=== PATIENT | male | born 1960 | race Caucasian/White ===

== ENCOUNTER 2016-12-02 11:20 | Emergency (ER) | payer OTHER ==
[2016-12-02] MEDS ORDERED: Sodium Chloride 0.9% 10 ML Syringe FLUSH PRN (11:54)
--- NOTE | 2016-12-02 11:54 | CR ---
Chest 1V Frontal INDICATION: chest pain COMPARISON: 08/29/2009 FINDINGS: Single view of the chest obtained shows normal heart size. No infiltrate or pleural effu darrel. No signs of pulmonary edema. IMPRESSION: Negative single view of the chest.
[2016-12-02] MEDS ORDERED: Clopidogrel 75 MG Tab PO ONE (11:55)
[2016-12-02] MEDS ORDERED: Heparin Sodium 5,000 Units/ML Vial IVPUSH ONE (11:55)
[2016-12-02] MEDS ORDERED: Metoprolol Succinate 25 MG Tab.ER PO ONE (11:56)
[2016-12-02] MEDS ORDERED: Heparin Sodium/D5W 25,000 UNITS/500 ML BAG IV SCH ×2 (12:00→12:30)
--- NOTE | 2016-12-02 12:07 | EDM.PDOC ---
ED HPI GENERAL MEDICAL PROBLEM - General Chief Complaint: Chest Pain Stated Complaint: FROM WALK IN Time Seen by Provider: 12/02/16 11:45 Source of Information: Reports: Patient History Limitations: Reports: No Limitations - History of Present Illness INITIAL COMMENTS - FREE TEXT/NARRATIVE: Azael presents to the ER today from [facility] with complaints of chest pain for 5 days that continues to worsen. He denies SOB, fever, chills. He states he has had nausea Aspirin 324 mg PO, EKG, CBC, BMP, Trop, all completed at [facility] this am at 1030. Trop 21.995 WBC 9.8 HGB 14.1 PLT 253 Creat 1.34 BUN 17 Na 13.7 K 3.9 CK 234 Gluc [address] depression in the inferior and lateral leads. This is a new finding for patient. Onset Date: 11/27/16 Duration: Day(s):, Intermittent, Waxing/Waning, Other (With some shortness of breath on activity. ) Location: Reports: Chest, Radiates to, Other Quality: Reports: Ache, Dull Improves with: Reports: None Right Neck Pain Score (Numeric/FACES): 2 - Related Data Allergies Allergy/AdvReac Type Severity Reaction Status Date / Time aluminum Allergy Rash Verified 12/02/16 11:52 Home Meds: Home Meds Aspirin [Adult Low Dose Aspirin EC] 81 mg PO DAILY 08/09/13 [History] Levothyroxine Sodium [Synthroid] 125 mcg PO DAILY 08/09/13 [History] Metoprolol Succinate [Toprol XL] 25 mg PO DAILY 08/09/13 [History] Omeprazole 20 mg PO DAILY 08/11/13 [History] Social & Family History - Tobacco Use Second Hand Smoke Exposure: No - Alcohol Use Days Per Week of Alcohol Use: 1 Number of Drinks Per Day: 1 Total Drinks Per Week: 1 - Recreational Drug Use Recreational Drug Use: No ED ROS GENERAL - Review of Systems Review Of Systems: See Below Constitutional: Denies: Fever, Chills, Malaise, Weakness, Fatigue, Night Sweats , Diaphoresis HEENT: Reports: No Symptoms Respiratory: Reports: Shortness of Breath, Other (SOB with activity at times the past 5 days. ). Denies: Cough, Sputum Cardiovascular: Reports: Chest Pain, Dyspnea on Exertion. Denies: Blood Pressure Problem, Claudication, Edema, Lightheadedness, Orthopnea, Palpitations , PND, Syncope Endocrine: Denies: No Symptoms GI/Abdominal: Reports: Nausea. Denies: Abdominal Pain, Constipation, Diarrhea, Vomiting : Denies: No Symptoms Skin: Reports: Other (Noted that patient had a tick bite between left great and 2nd toe on October 19, 2016. He reports the area became red, warm and went away after several days. ). Denies: Cyanosis, Mottled, Bruising, Rash, Erythema, Wound Neurological: Reports: No Symptoms Psychiatric: Reports: No Symptoms Hematologic/Lymphatic: Reports: No Symptoms Immunologic: Reports: No Symptoms ED EXAM, GENERAL - Physical Exam Exam: See Below Free Text/Narrative:: Azael is an alert, oriented, pleasant and active 56 year old male presenting with complaints of right sided chest pain, some dyspnea with exertion for 5 days. Past care and angiogram per Dr. Jj of [facility], 2010. Exam Limited By: No Limitations General Appearance: Alert, WD/WN, No Apparent Distress Eye Exam: Bilateral Eye: EOMI, PERRL Ears: Normal External Exam, Normal Canal, Hearing Grossly Normal, Normal TMs Ear Exam: Bilateral Ear: Auricle Normal, Canal Normal, TM normal Nose: Normal Inspection, Normal Mucosa, No Blood Throat/Mouth: Normal Inspection, Normal Lips, Normal Teeth, Normal Gums, Normal Oropharynx, Normal Voice, No Airway Compromise Head: Atraumatic, Normocephalic Neck: Normal Inspection, Supple, Non-Tender, Full Range of Motion Respiratory/Chest: No Respiratory Distress, Lungs Clear, Normal Breath Sounds, No Accessory Muscle Use, Chest Non-Tender Cardiovascular: Normal Peripheral Pulses, Regular Rate, Rhythm, No Edema, No Murmur, No Rub Peripheral Pulses: 2+: Radial (L), Radial (R), Dorsalis Pedis (L), Dorsalis Pedis (R) GI/Abdominal: Normal Bowel Sounds, Soft, Non-Tender, No Organomegaly, No Distention, No Abnormal Bruit Back Exam: Normal Inspection, Full Range of Motion. No: CVA Tenderness (R), CVA Tenderness (L) Extremities: Normal Inspection, Normal Range of Motion, Non-Tender, No Pedal Edema, Normal Capillary Refill Neurological: Alert, Oriented, CN II-XII Intact, Normal Cognition, No Motor/ Sensory Deficits Psychiatric: Normal Affect, Normal Mood Skin Exam: Warm, Dry, Intact, Normal Color, No Rash Lymphatic: No Adenopathy EKG INTERPRETATION EKG Date: 12/02/16 EKG Interpretation Comments: EKG completed at [facility] has ST depression of inferior and lateral leads. Course - Vital Signs Last Recorded V/S: Last Vital Signs Temp 36.6 C 12/02/16 11:45 Pulse 79 12/02/16 12:19 Resp 15 12/02/16 11:45 BP 146/102 H 12/02/16 12:19 Pulse Ox 97 12/02/16 11:45 - Orders/Labs/Meds Orders: Active Orders 24 hr Category Date Time Status Heparin Sodium/D5W [Heparin 25,000 Units in D5W 500 ML] Med 12/02/16 12:30 Active 25,000 units in 500 ml IV TITRATE Sodium Chloride 0.9% [Saline Flush] Med 12/02/16 11:54 Active 10 ml FLUSH ASDIRECTED PRN Saline Lock Insert [OM.PC] Routine Oth 12/02/16 11:54 Ordered Medication Orders Heparin Sodium/Dextrose (Heparin 25,000 Units In D5w 500 Ml) 25,000 units in 500 mls @ 20 mls/hr IV TITRATE IVONNE; 1,000 UNITS/HR PRN Reason: Protocol Last Admin: 12/02/16 12:26 Dose: 1,000 units/hr, 20 mls/hr Sodium Chloride (Saline Flush) 10 ml FLUSH ASDIRECTED PRN PRN Reason: Keep Vein Open Last Admin: 12/02/16 12:19 Dose: 10 ml Meds: Medications Generic Name Dose Route Start Last Admin Trade Name Freq PRN Reason Stop Dose Admin Heparin Sodium/Dextrose 25,000 units in 500 mls @ 20 mls/hr 12/02/16 12:30 12:26 Heparin 25,000 Units In D5w 500 Ml IV 1,000 units/hr TITRATE IVONNE 20 mls/hr Protocol Administration 1,000 UNITS/HR Sodium Chloride 10 ml 12/02/16 11:54 12/02/16 12:19 Saline Flush FLUSH 10 ml ASDIRECTED PRN Administration Keep Vein Open Discontinued Medications Generic Name Dose Route Start Last Admin Trade Name Freq PRN Reason Stop Dose Admin Clopidogrel Bisulfate 300 mg 12/02/16 11:55 12/02/16 12:06 Plavix PO 12/02/16 11:56 300 mg ONETIME ONE Administration Heparin Sodium (Porcine) 4,000 units 12/02/16 11:55 12/02/16 12:06 Heparin Sodium IVPUSH 12/02/16 11:56 4,000 units .BOLUS ONE Administration Heparin Sodium/Dextrose 25,000 units in 500 mls @ 1,705.507 mls/hr 12/02/16 12 :00 Heparin 25,000 Units In D5w 500 Ml IV TITRATE IVONNE 1,000 UNITS/KG/HR Metoprolol Succinate 25 mg 12/02/16 11:56 12/02/16 12:19 Toprol Xl PO 12/02/16 11:57 25 mg ONETIME ONE Administration - Radiology Interpretation Free Text/Narrative:: Chest x-ray wet read, shows no acute findings. - Re-Assessments/Exams Free Text/Narrative Re-Assessment/Exam: 12/02/16 1145 Patient from clinic, reviewed lab work with Officer and patient. Free Text/Narrative Re-Assessment/Exam: 12/02/16 12:39 Patient and family questions answered. They are in agreement with transfer to [facility]. Departure - Departure Time of Disposition: 12:09 Disposition: DC/Tfer to Acute Hospital 02 Reason for Transfer *Q: Other (Elevated Trop 21.995, Non-stemi AL) Condition: Serious Clinical Impression: Non-STEMI (non-ST elevated myocardial infarction), Elevated troponin Referrals: Adis Coello PA-C [Primary Care Provider] - - My Orders Last 24 Hours: My Active Orders 12/02/16 11:54 Sodium Chloride 0.9% [Saline Flush] 10 ml FLUSH ASDIRECTED PRN Saline Lock Insert [OM.PC] Routine 12/02/16 12:30 Heparin Sodium/D5W [Heparin 25,000 Units in D5W 500 ML] 25,000 units in 500 ml IV TITRATE - Assessment/Plan Last 24 Hours: My Active Orders 12/02/16 11:54 Sodium Chloride 0.9% [Saline Flush] 10 ml FLUSH ASDIRECTED PRN Saline Lock Insert [OM.PC] Routine 12/02/16 12:30 Heparin Sodium/D5W [Heparin 25,000 Units in D5W 500 ML] 25,000 units in 500 ml IV TITRATE Assessment:: Non-stemi AL Elevated troponin Transfer to [facility] Accepted per Dr. Mckee. Plan: Transfer via [facility] to [facility]. Accepted per Dr. Mckee.
[2016-12-02 14:01] VITALS: BP 142/92
== END 2016-12-02 12:50 ==
LOC: JP.ED 11:20
DX: I21.4 Non-ST elevation (NSTEMI) myocardial infarction (principal); R74.8 Abnormal levels of other serum enzymes; Z79.82 Long term (current) use of aspirin; Z79.899 Other long term (current) drug therapy; Z91.048 Other nonmedicinal substance allergy status
CPT/HCPCS: 71010; 96374; 99285; A9270; J1644; J7050

== ENCOUNTER 2016-12-20 09:11 | Inpatient (IN) | payer OTHER ==
--- NOTE | 2016-12-20 09:51 | EDM.PDOC ---
ED HPI GENERAL MEDICAL PROBLEM - General Chief Complaint: General Stated Complaint: WEAKNESS,LOW BP, STENTS 12/02 Time Seen by Provider: 12/20/16 09:25 Source of Information: Reports: Patient History Limitations: Reports: No Limitations - History of Present Illness INITIAL COMMENTS - FREE TEXT/NARRATIVE: 56-year-old male who within the last month underwent coronary angiography and had 3 stents placed after a non-STEMI. Since that time he has increased activity and has been doing well but 2 evenings ago he developed a "food poisoning" with nausea, vomiting and diarrhea. After several episodes of emesis he started to vomit blood. This continued for several hours, the nausea improved and he has not had emesis for the last 12 hours but has developed dark stools, lightheadedness and dizziness with activity and weakness. He had a long history of GERD and was on Prilosec prior to his procedure but is no longer taking it because he was told it hurts his kidneys. He is not having any significant pain, shortness of breath at rest, peripheral edema or easy bruising. Onset: Sudden (Symptoms started rather suddenly a day and a half ago) - Related Data Allergies Allergy/AdvReac Type Severity Reaction Status Date / Time aluminum Allergy Rash Verified 12/02/16 11:52 Home Meds: Home Meds Aspirin [Adult Low Dose Aspirin EC] 81 mg PO DAILY 08/09/13 [History] Levothyroxine Sodium [Synthroid] 125 mcg PO DAILY 08/09/13 [History] Metoprolol Succinate [Toprol XL] 50 mg PO DAILY 08/09/13 [History] Clopidogrel [Plavix] 75 mg PO DAILY 12/20/16 [History] Lisinopril 10 mg PO DAILY 12/20/16 [History] Rosuvastatin Calcium [Rosuvastatin Calcium] 10 mg PO DAILY 12/20/16 [History] Past Medical History Cardiovascular History: Reports: Hypertension, [place], Stents Gastrointestinal History: Reports: GERD Endocrine/Metabolic History: Reports: Hypothyroidism Social & Family History - Tobacco Use Smoking Status *Q: Never Smoker Second Hand Smoke Exposure: No - Caffeine Use Caffeine Use: Reports: Coffee - Alcohol Use Days Per Week of Alcohol Use: 1 Number of Drinks Per Day: 1 Total Drinks Per Week: 1 - Recreational Drug Use Recreational Drug Use: No ED ROS GENERAL - Review of Systems Review Of Systems: See Below Constitutional: Reports: Malaise, Weakness HEENT: Reports: No Symptoms Respiratory: Reports: Shortness of Breath (Some mild shortness of breath with activity) Cardiovascular: Reports: Dyspnea on Exertion, Other (Lightheadedness when standing) GI/Abdominal: Reports: Black Stool, Nausea Skin: Reports: Pallor, Diaphoresis Neurological: Reports: Dizziness Psychiatric: Reports: No Symptoms ED EXAM, GENERAL - Physical Exam Exam: See Below Exam Limited By: No Limitations General Appearance: Alert, No Apparent Distress Eye Exam: Bilateral Eye: Normal Inspection (No jaundice, no significant pallor to the conjunctiva) Respiratory/Chest: No Respiratory Distress, Lungs Clear Cardiovascular: Regular Rate, Rhythm, Tachycardia (Just mild tachycardia, no murmur) GI/Abdominal: Normal Bowel Sounds, Soft Rectal (Males) Exam: Deferred (Rectal exam was deferred as his stools are obviously melanotic) Neurological: Alert, Oriented Psychiatric: Normal Affect, Normal Mood Skin Exam: Warm, Dry Course - Vital Signs Last Recorded V/S: Last Vital Signs Temp 99.0 F 12/20/16 14:30 Pulse 102 H 12/20/16 14:40 Resp 18 12/20/16 14:40 BP 60/26 L 12/20/16 14:40 Pulse Ox 100 12/20/16 14:40 - Orders/Labs/Meds Orders: Active Orders 24 hr Category Date Time Status Sodium Chloride 0.9% [Normal Saline] 1,000 ml Med 12/20/16 10:15 Active IV ASDIRECTED Resuscitation Status Routine Resus Stat 12/20/16 11:12 Ordered Medication Orders Sodium Chloride (Normal Saline) 1,000 mls @ 250 mls/hr IV ASDIRECTED IVONNE Last Admin: 12/20/16 10:26 Dose: 250 mls/hr Labs: Laboratory Tests 12/20/16 12/20/16 12/20/16 Range/Units 09:52 09:52 09:52 WBC 6.9 (4.5-11.0) K/uL RBC 3.56 L (4.30-5.90) M/uL Hgb 10.2 L (12.0-15.0) g/dL Hct 30.6 L (40.0-54.0) % MCV 86 (80-98) fL MCH 29 (27-31) pg MCHC 33 (32-36) % Plt Count 285 (150-400) K/uL Neut % (Auto) 70 H (36-66) % Lymph % (Auto) 24 (24-44) % [place] % (Auto) 5 (2-6) % Eos % (Auto) 1 L (2-4) % Baso % (Auto) 0 (0-1) % PT 10.8 (9.5-12.0) sec INR 1.01 (0.80-1.20) Sodium 140 (140-148) mmol/L Potassium 4.1 (3.6-5.2) mmol/L Chloride 106 (100-108) mmol/L Carbon Dioxide 29 (21-32) mmol/L Anion Gap 4.7 L (5.0-14.0) mmol/L BUN 43 H (7-18) mg/dL Creatinine 1.2 (0.8-1.3) mg/dL Est Cr Clr Drug Dosing 71.82 mL/min Estimated GFR (MDRD) > 60 (>60) Glucose 148 H (74-106) mg/dL Calcium 8.3 L (8.5-10.1) mg/dL Total Bilirubin 0.3 (0.2-1.0) mg/dL AST 13 L (15-37) U/L ALT 17 (12-78) U/L Alkaline Phosphatase 48 (46-116) U/L Total Protein 6.9 (6.4-8.2) g/dL Albumin 3.3 L (3.4-5.0) g/dL Globulin 3.6 H (2.3-3.5) g/dL Albumin/Globulin Ratio 0.9 L (1.2-2.2) Meds: Medications Generic Name Dose Route Start Last Admin Trade Name Freq PRN Reason Stop Dose Admin Sodium Chloride 1,000 mls @ 250 mls/hr 12/20/16 10:15 12/20/16 10:26 Normal Saline IV 250 mls/hr ASDIRECTED IVONNE Administration Discontinued Medications Generic Name Dose Route Start Last Admin Trade Name Freq PRN Reason Stop Dose Admin Epinephrine HCl Confirm 12/20/16 12:47 Adrenalin 1:1000 Administered 12/20/16 12:48 Dose 1 mg .ROUTE .STK-MED ONE Fentanyl Confirm 12/20/16 13:25 Sublimaze Administered 12/20/16 13:26 Dose 100 mcg .ROUTE .STK-MED ONE Midazolam HCl Confirm 12/20/16 13:25 Versed 1 Mg/Ml Administered 12/20/16 13:26 Dose 2 mg .ROUTE .STK-MED ONE Pantoprazole Sodium 40 mg 12/20/16 10:15 12/20/16 10:26 Protonix Iv IVPUSH 12/20/16 10:16 40 mg ONETIME ONE Administration Propofol Confirm 12/20/16 13:25 Diprivan 20 Ml Administered 12/20/16 13:26 Dose 200 mg .ROUTE .STK-MED ONE - Re-Assessments/Exams Free Text/Narrative Re-Assessment/Exam: 12/20/16 09:51 CBC, CMP and INR were obtained. 12/20/16 10:49 CBC revealed a hemoglobin of 10.2, compared to 13.7 just a few weeks ago. BUN is 43. An IV was started and the patient was given 40 mg of IV Protonix, and 250 mL an hour of normal saline. Dr. Lainez of the hospitalist service was asked to see the patient to consider admission for serial hemoglobins and likely EGD consultation. Departure - Departure Time of Disposition: 14:36 Disposition: Admitted As Inpatient 67 Condition: Fair Clinical Impression: Upper GI bleed, Anemia, blood loss - Discharge Information - My Orders Last 24 Hours: My Active Orders 12/20/16 10:15 Sodium Chloride 0.9% [Normal Saline] 1,000 ml IV ASDIRECTED - Assessment/Plan Last 24 Hours: My Active Orders 12/20/16 10:15 Sodium Chloride 0.9% [Normal Saline] 1,000 ml IV ASDIRECTED
[2016-12-20] MEDS ORDERED: Sodium Chloride 0.9% 1,000 ML IV SCH (10:15)
[2016-12-20] MEDS ORDERED: Pantoprazole 40 MG Vial IVPUSH ONE ×2 (10:15→21:00)
--- NOTE | 2016-12-20 11:23 | PCM.HP ---
H&P History of Present Illness - General Date of Service: 12/20/16 Admit Problem/Dx: Admission Diagnosis/Problem Admission Diagnosis/Problem Gastrointestinal hemorrhage Source of Information: Patient, Family, Provider History Limitations: Reports: No Limitations - History of Present Illness Initial Comments - Free Text/Narative: Jose presents to the emergency room today with dizziness and weakness. He reports onset of difficulties on Friday, 2 days ago. After supper he became nauseated and vomited twice. He had a very uneasy feeling in his abdomen and then his third emesis was mostly bright red blood. He did have a couple of episodes of diarrhea after this which did not contain blood or melena. He has not had further episodes of hematemesis but has had some mild nausea. The day after the hematemesis he had several loose black tarry stools. Yesterday he felt weak and dizzy but seem to improve some with sleep. He had additional episodes of melena overnight and one this morning. He is very weak and able to walk only short distances before he becomes very lightheaded. He has not had a syncopal episode but has been very close. He does not report any abdominal pain at this time. He does have some heartburn symptoms. He has not had any fevers. He had breakfast at 8:30 this morning. Workup in the emergency room revealed acute blood loss anemia with a 4 g hemoglobin drop in the past 3 weeks. He is mildly tachycardic and there is concern for a significant upper GI bleed. He will be admitted for further management. - Related Data Allergies/Adverse Reactions: Allergies Allergy/AdvReac Type Severity Reaction Status Date / Time aluminum Allergy Rash Verified 12/02/16 11:52 Home Medications: Home Meds Aspirin [Adult Low Dose Aspirin EC] 81 mg PO DAILY 08/09/13 [History] Levothyroxine Sodium [Synthroid] 125 mcg PO DAILY 08/09/13 [History] Metoprolol Succinate [Toprol XL] 50 mg PO DAILY 08/09/13 [History] Clopidogrel [Plavix] 75 mg PO DAILY 12/20/16 [History] Lisinopril 10 mg PO DAILY 12/20/16 [History] Rosuvastatin Calcium [Rosuvastatin Calcium] 10 mg PO DAILY 12/20/16 [History] Past Medical History Cardiovascular History: Reports: Hypertension, [place], Stents Gastrointestinal History: Reports: GERD Endocrine/Metabolic History: Reports: Hypothyroidism Social & Family History - Family History GI: Denies: PUD - Tobacco Use Smoking Status *Q: Never Smoker Second Hand Smoke Exposure: No - Caffeine Use Caffeine Use: Reports: Coffee - Alcohol Use Days Per Week of Alcohol Use: 1 Number of Drinks Per Day: 1 Total Drinks Per Week: 1 - Recreational Drug Use Recreational Drug Use: No H&P Review of Systems - Review of Systems: Review Of Systems: See Below Free Text/Narrative: A complete 12 point review of systems was obtained. Pertinent positives and negatives are noted in the history of present illness. All other systems were reviewed and were negative except as noted. Exam - Exam Exam: See Below - Vital Signs Vital Signs: Last Vital Signs Temp 35.5 C 12/20/16 09:22 Pulse 104 H 12/20/16 09:22 Resp 18 12/20/16 09:22 BP 119/85 12/20/16 09:22 Pulse Ox 97 12/20/16 09:22 Weight: 81.7 kg - Exam Quality Assessment: No: Supplemental Oxygen General: Alert, Oriented, Cooperative. No: Mild Distress HEENT: Conjunctiva Clear. No: Mucosa Moist & [place] (dry), Scleral Icterus Neck: Supple, Trachea Midline Lungs: Clear to Auscultation, Normal Respiratory Effort Cardiovascular: Regular Rate, Regular Rhythm. No: Systolic Murmur GI/Abdominal Exam: Normal Bowel Sounds, Soft, Non-Tender, No Distention, No Mass Back Exam: Normal Inspection, Full Range of Motion Extremities: Normal Inspection, Normal Range of Motion, No Pedal Edema. No: Increased Warmth Peripheral Pulses: 2+: Dorsalis Pedis (L), Dorsalis Pedis (R) Skin: Warm, Dry Neuro Extensive - Mental Status: Alert, Oriented x3, Nl Response to Commands Neuro Extensive - Motor, Sensory, Reflexes: CN II-XII Intact. No: Dysarthria, Abnormal Motor, Tremor Psychiatric: Alert, Normal Affect - Patient Data Lab Results Last 24 hrs: Laboratory Results - last 24 hr 12/20/16 12/20/16 12/20/16 Range/Units 09:52 09:52 09:52 WBC 6.9 (4.5-11.0) K/uL RBC 3.56 L (4.30-5.90) M/uL Hgb 10.2 L (12.0-15.0) g/dL Hct 30.6 L (40.0-54.0) % MCV 86 (80-98) fL MCH 29 (27-31) pg MCHC 33 (32-36) % Plt Count 285 (150-400) K/uL Neut % (Auto) 70 H (36-66) % Lymph % (Auto) 24 (24-44) % [place] % (Auto) 5 (2-6) % Eos % (Auto) 1 L (2-4) % Baso % (Auto) 0 (0-1) % PT 10.8 (9.5-12.0) sec INR 1.01 (0.80-1.20) Sodium 140 (140-148) mmol/L Potassium 4.1 (3.6-5.2) mmol/L Chloride 106 (100-108) mmol/L Carbon Dioxide 29 (21-32) mmol/L Anion Gap 4.7 L (5.0-14.0) mmol/L BUN 43 H (7-18) mg/dL Creatinine 1.2 (0.8-1.3) mg/dL Est Cr Clr Drug Dosing 71.82 mL/min Estimated GFR (MDRD) > 60 (>60) Glucose 148 H (74-106) mg/dL Calcium 8.3 L (8.5-10.1) mg/dL Total Bilirubin 0.3 (0.2-1.0) mg/dL AST 13 L (15-37) U/L ALT 17 (12-78) U/L Alkaline Phosphatase 48 (46-116) U/L Total Protein 6.9 (6.4-8.2) g/dL Albumin 3.3 L (3.4-5.0) g/dL Globulin 3.6 H (2.3-3.5) g/dL Albumin/Globulin Ratio 0.9 L (1.2-2.2) Result Diagrams: 12/20/16 09:52 12/20/16 09:52 *Q Meaningful Use (ADM) - VTE *Q VTE Criteria *Q: VTE Pharmacological Contraindications *Q: Active Hemorrhage - VTE Risk Assess *Q Each Risk Factor Represents 1 Point: Age 41 - 59 years, Acute Myocardial Infarction, Less than 1 Month Total Score 1 Point Risk Factors: 2 Each Risk Factor Represents 2 Points: None Total Score 2 Point Risk Factors: 0 Each Risk Factor Represents 3 Points: None Total Score 3 Point Risk Factors: 0 Each Risk Factor Represents 5 Points: None Total Score 5 Point Risk Factors: 0 Venous Thromboembolism Risk Factor Score *Q: 2 - Stroke *Q Stroke Criteria *Q: - AMI *Q AMI Criteria *Q: - Problem List (1) Upper GI bleed SNOMED Code(s): 06646541 ICD Code: K92.2 - GASTROINTESTINAL HEMORRHAGE, UNSPECIFIED Status: Acute Current Visit: Yes (2) Anemia, blood loss SNOMED Code(s): 631330108 ICD Code: D50.0 - IRON DEFICIENCY ANEMIA SECONDARY TO BLOOD LOSS (CHRONIC) Status: Acute Current Visit: Yes (3) CAD (coronary artery disease) SNOMED Code(s): 79200053 ICD Code: I25.10 - ATHSCL HEART DISEASE OF [place] CORONARY ARTERY W/O ANG PCTRS Status: Chronic Current Visit: Yes Qualifiers: Coronary Disease-Associated Artery/Lesion type: [place] artery [place] vs. transplanted heart: [place] heart Associated angina: without angina Qualified Code(s): I25.10 - Atherosclerotic heart disease of [place] coronary artery without angina pectoris Problem List Initiated/Reviewed/Updated: Yes Orders Last 24hrs: Active Orders 24 hr Category Date Time Status Patient Status Manage Transfer [TRANSFER] Routine ADT 12/20/16 11:11 Ordered Sodium Chloride 0.9% [Normal Saline] 1,000 ml Med 12/20/16 10:15 Active IV ASDIRECTED Resuscitation Status Routine Resus Stat 12/20/16 11:12 Ordered Medication Orders Sodium Chloride (Normal Saline) 1,000 mls @ 250 mls/hr IV ASDIRECTED IVONNE Last Admin: 12/20/16 10:26 Dose: 250 mls/hr Assessment/Plan Comment:: Assessment and plan - Acute upper gastrointestinal hemorrhage with acute blood loss anemia - suspect bleeding ulcer versus possibly mucosal disruption with arterial hemorrhage following vomiting. He was recently started on aspirin and clopidogrel for coronary artery disease as discussed below. He does not appear to be actively bleeding at this time but does have evidence for volume depletion including tachycardia and presyncope. Blood pressure is stable at this point. -Maintain 2 IV sites -IV PPI -IV fluids -Type and cross 4 units of blood -EGD with Dr. Stone this afternoon -Consider sucralfate -Serial hemoglobin levels Coronary artery disease with recent non-ST elevation myocardial infarction - He had 3 stents placed 3 weeks ago and is on dual antiplatelet therapy. He has had a good functional status prior to onset of symptoms and has not had recent chest pain. Because of the recent stenting he must remain on dual antiplatelet therapy. -Continue medical management other than antihypertensives which will be held briefly Maintenance issues - - DVT prophylaxis - mechanical with active hemorrhage - GI prophylaxis - PPI - Nutrition - nothing by mouth for now - Samson catheter - not indicated CODE STATUS - full code Admission justification - This patient will be admitted for inpatient services and is medically appropriate meeting medical necessity for inpatient admission as outlined in my documentation. I reasonably expect the patient will require inpatient services that span a period time over 2 midnights. I reasonably expect this patient to be discharged or transferred within 96 hours [facility]. Disposition - anticipate discharge home after the hospital stay Primary care physician - Adis Lianez M.D.
[2016-12-20] MEDS ORDERED: EPINEPHrine 1 MG/ML SDV ONE (12:47)
[2016-12-20] MEDS ORDERED: Midazolam 1 MG/ML 2 ML SDV ONE (13:25)
[2016-12-20] MEDS ORDERED: fentaNYL 100 MCG/2 ML SDV ONE (13:25)
[2016-12-20] MEDS ORDERED: Propofol 200 MG/20 ML SDV ONE (13:25)
[2016-12-20] MEDS ORDERED: Naloxone 0.4 MG/ML SDV ONE (14:47)
[2016-12-20] MEDS: Sucralfate Suspension 1 GM/10 ML Cup PO SCH ×3 (16:22→20:04)
[2016-12-20] MEDS: Sodium Chloride 0.9% 1,000 ML IV SCH (19:50)
[2016-12-21] MEDS: Sodium Chloride 0.9% 1,000 ML IV SCH ×2 (03:53→11:52)
[2016-12-21] MEDS: Sucralfate Suspension 1 GM/10 ML Cup PO SCH ×4 (06:24→19:38)
--- NOTE | 2016-12-21 09:27 | PCM.PN ---
- General Info Date of Service: 12/21/16 Functional Status: Reports: Pain Controlled, Ambulating - Review of Systems General: Reports: Weakness Gastrointestinal: Denies: Abdominal Pain Neurological: Reports: Dizziness Systems Review Comment:: No acute events overnight. No recurrence of hematemesis or melena. Hemoglobin has slowly drifted down. He remains hypotensive and symptomatic with dizziness despite aggressive volume resuscitation. No significant abdominal pain. EGD yesterday did reveal an ulcer at the GE junction. There was some concern for varices but his abdominal ultrasound did not show cirrhosis. - Patient Data Vitals - Most Recent: Last Vital Signs Temp 37.3 C 12/21/16 08:00 Pulse 75 12/21/16 06:00 Resp 13 12/21/16 08:00 BP 97/59 L 12/21/16 08:00 Pulse Ox 99 12/21/16 08:00 Weight - Most Recent: 81.7 kg I&O - Last 24 Hours: Intake & Output 12/20/16 12/21/16 12/21/16 22:59 06:59 14:59 Intake Total 1570 Output Total 400 825 Balance -400 745 Lab Results Last 24 Hours: Laboratory Results - last 24 hr 12/20/16 12/20/16 12/21/16 Range/Units 19:17 19:19 05:00 WBC 5.6 (4.5-11.0) K/uL RBC 2.81 L (4.30-5.90) M/uL Hgb 8.8 L 8.2 L (12.0-15.0) g/dL Hct 24.6 L (40.0-54.0) % MCV 88 (80-98) fL MCH 29 (27-31) pg MCHC 33 (32-36) % Plt Count 211 (150-400) K/uL Blood Type A POSITIVE Gel Antibody Screen Negative Crossmatch See Detail Med Orders - Current: Current Medications Sodium Chloride (Normal Saline) 1,000 mls @ 250 mls/hr IV ASDIRECTED IVONNE Last Admin: 12/20/16 10:26 Dose: 250 mls/hr Sodium Chloride (Normal Saline) 1,000 mls @ 125 mls/hr IV ASDIRECTED IVONNE Last Admin: 12/21/16 03:53 Dose: 125 mls/hr Sucralfate (Carafate) 1 gm PO QIDACANDBED IVONNE Last Admin: 12/21/16 06:24 Dose: 1 gm Discontinued Medications Epinephrine HCl (Adrenalin 1:1000) Confirm Administered Dose 1 mg .ROUTE .STK- MED ONE Stop: 12/20/16 12:48 Fentanyl (Sublimaze) Confirm Administered Dose 100 mcg .ROUTE .STK-MED ONE Stop: 12/20/16 13:26 Midazolam HCl (Versed 1 Mg/Ml) Confirm Administered Dose 2 mg .ROUTE .STK-MED ONE Stop: 12/20/16 13:26 Naloxone HCl (Narcan) Confirm Administered Dose 0.4 mg .ROUTE .STK-MED ONE Stop: 12/20/16 14:48 Pantoprazole Sodium (Protonix Iv) 40 mg IVPUSH ONETIME ONE Stop: 12/20/16 10:16 Last Admin: 12/20/16 10:26 Dose: 40 mg Pantoprazole Sodium (Protonix Iv) 40 mg IVPUSH ONETIME ONE Stop: 12/20/16 21:01 Last Admin: 12/20/16 20:04 Dose: 40 mg Propofol (Diprivan 20 Ml) Confirm Administered Dose 200 mg .ROUTE .STK-MED ONE Stop: 12/20/16 13:26 - Exam Quality Assessment: No: Supplemental Oxygen General: Alert, Oriented, Cooperative, No Acute Distress Neck: Supple Lungs: Normal Respiratory Effort Cardiovascular: Regular Rate, Regular Rhythm GI/Abdominal Exam: Soft, No Distention Extremities: No Pedal Edema. No: Increased Warmth Skin: Warm, Dry Psy/Mental Status: Alert, Normal Affect - Problem List & Annotations (1) Upper GI bleed SNOMED Code(s): 62096489 Code(s): K92.2 - GASTROINTESTINAL HEMORRHAGE, UNSPECIFIED Status: Acute Current Visit: Yes (2) Anemia, blood loss SNOMED Code(s): 067779130 Code(s): D50.0 - IRON DEFICIENCY ANEMIA SECONDARY TO BLOOD LOSS (CHRONIC) Status: Acute Current Visit: Yes (3) CAD (coronary artery disease) SNOMED Code(s): 62038625 Code(s): I25.10 - ATHSCL HEART DISEASE OF [place] CORONARY ARTERY W/O ANG PCTRS Status: Chronic Current Visit: Yes Qualifiers: Coronary Disease-Associated Artery/Lesion type: [place] artery [place] vs. transplanted heart: [place] heart Associated angina: without angina Qualified Code(s): I25.10 - Atherosclerotic heart disease of [place] coronary artery without angina pectoris - Problem List Review Problem List Initiated/Reviewed/Updated: Yes - My Orders Last 24 Hours: My Active Orders 12/20/16 15:17 Abdomen Ltd [US] Routine 12/20/16 16:00 Sucralfate [Carafate] 1 gm PO QIDACANDBED 12/20/16 19:19 PATIENT RETYPE [BBK] Routine RED BLOOD CELLS LP [BBK] Routine TYPE AND SCREEN [BBK] Routine 12/20/16 19:28 Vital Signs [RC] PER UNIT ROUTINE 12/20/16 19:30 Sodium Chloride 0.9% [Normal Saline] 1,000 ml IV ASDIRECTED 12/21/16 09:24 Transfuse Red Blood Cells [COMM] Routine 12/21/16 09:30 Aspirin [Halfprin] 81 mg PO DAILY Clopidogrel [Plavix] 75 mg PO DAILY Levothyroxine Sodium [Synthroid] 125 mcg PO DAILY Pantoprazole [ProTONIX] 40 mg PO BIDAC Rosuvastatin [Crestor] 10 mg PO DAILY 12/21/16 17:00 HGB [HEMOGLOBIN] [HEME] Timed 12/21/16 Breakfast Full Liquid Diet [DIET] 12/22/16 05:00 BASIC METABOLIC PANEL,BMP [CHEM] Timed CBC W/O DIFF,HEMOGRAM [HEME] Timed (1) - Plan Plan:: Assessment and plan - Acute upper gastrointestinal hemorrhage with acute blood loss anemia - ulceration found at the GE junction with endoscopy yesterday. His was not actively bleeding. Some concern for varices but no cirrhosis noted. Variceal appearance probably related to decreased ejection fraction and enteric congestion. Hemoglobin slowly drifting down but probably a component of dilution. -Maintain 2 IV sites -Twice a day PPI -Continue fluids -Transfuse 1 unit of blood today with persistent hypotension and symptoms despite volume resuscitation -4 times daily sucralfate -Serial hemoglobin levels Coronary artery disease with recent non-ST elevation myocardial infarction - He had 3 stents placed 3 weeks ago and is on dual antiplatelet therapy. He has had a good functional status prior to onset of symptoms and has not had recent chest pain. Because of the recent stenting he must remain on dual antiplatelet therapy.Blood pressures are on the low side and MACKENZIE inhibitor and beta mady will remain on hold. -Continue medical management other than antihypertensives which will be held briefly Maintenance issues - - DVT prophylaxis - mechanical with recent hemorrhage - GI prophylaxis - PPI - Nutrition - full liquids Disposition - anticipate discharge home after the hospital stay. He should be stable for transfer out of the intensive care unit later in the day. Chirag Lainez M.D.
[2016-12-21] MEDS ORDERED: Non-Formulary Medication 1 Each (Levothyroxine Sodium [Synthroid] 125 MCG) PO SCH (09:30)
[2016-12-21] MEDS: Aspirin 81 MG Tab.EC PO SCH (10:31)
[2016-12-21] MEDS: Rosuvastatin 10 MG Tab PO SCH (10:31)
[2016-12-21] MEDS: Clopidogrel 75 MG Tab PO SCH (10:32)
[2016-12-21] MEDS: Pantoprazole 40 MG Tab.CR PO SCH ×2 (10:32→16:07)
[2016-12-22] MEDS: Pantoprazole 40 MG Tab.CR PO SCH (07:47)
[2016-12-22] MEDS: Sucralfate Suspension 1 GM/10 ML Cup PO SCH ×2 (07:48→11:26)
[2016-12-22] MEDS: Rosuvastatin 10 MG Tab PO SCH (08:38)
[2016-12-22] MEDS: Clopidogrel 75 MG Tab PO SCH (08:39)
[2016-12-22] MEDS: Aspirin 81 MG Tab.EC PO SCH (08:39)
[2016-12-22 09:39] VITALS: BP 98/79
--- NOTE | 2016-12-22 12:14 | PCM.DCSUM1 ---
Discharge Summary - Hospital Course Brief History: 56-year-old male with recent non-ST elevation myocardial infarction who presented with hematemesis and melena. He was admitted for management of an acute upper gastrointestinal hemorrhage with blood loss anemia. - Discharge Data Discharge Date: 12/22/16 Discharge Disposition: Home, Self-Care 01 Condition: Good - Discharge Diagnosis/Problem(s) (1) Upper GI bleed SNOMED Code(s): 67062585 ICD Code: K92.2 - GASTROINTESTINAL HEMORRHAGE, UNSPECIFIED Status: Acute (2) Anemia, blood loss SNOMED Code(s): 982161590 ICD Code: D50.0 - IRON DEFICIENCY ANEMIA SECONDARY TO BLOOD LOSS (CHRONIC) Status: Acute (3) CAD (coronary artery disease) SNOMED Code(s): 21496859 ICD Code: I25.10 - ATHSCL HEART DISEASE OF [place] CORONARY ARTERY W/O ANG PCTRS Status: Chronic Qualifiers: Coronary Disease-Associated Artery/Lesion type: [place] artery [place] vs. transplanted heart: [place] heart Associated angina: without angina Qualified Code(s): I25.10 - Atherosclerotic heart disease of [place] coronary artery without angina pectoris - Patient Summary/Data Hospital Course: Jose presented to the emergency room with hematemesis, melena and presyncope. Workup in the emergency room suggested acute blood loss anemia with a 4 g hemoglobin drop and concern for upper gastrointestinal hemorrhage. He received aggressive IV fluids and IV pantoprazole and was admitted to the intensive care unit for further management. The afternoon after admission he was taken to the operating room for upper endoscopy with Dr. Stone. During the endoscopy and ulcer near the GE junction was identified with no evidence for bleeding. There was some concern for varices noted on the EGD but no active bleeding. No significant gastritis or esophagitis was noted. He has been stable following endoscopy. Serial hemoglobin levels did show a decline to near but above 8. He had some persistent dizziness and hypotension despite the aggressive volume resuscitation and did receive one unit of packed red blood cells via transfusion. Since the transfusion he has felt better with resolution of his dizziness. He has remained borderline hypotensive and his antihypertensive medications have been on hold. His hemoglobin responded nicely to the blood transfusion and has been stable since that time. He has not had additional episodes of melena or hematemesis. He has not had any abdominal pain. He has been transitioned to oral pantoprazole with no difficulties. Kidney function has remained stable. No reports of chest pain or concerns for coronary difficulties with recent non-ST elevation myocardial infarction. He has tolerated his full liquid diet. I believe he is safe for outpatient management at this time. His antihypertensives will remain on hold and blood pressure checks will be through cardiac rehabilitation this week. Once his blood pressure starts to improve I recommended he restart his metoprolol and then his lisinopril once blood pressures had stabilized. He will be following up with his primary care and would benefit from a repeat hemoglobin at that time. He will be on pantoprazole twice a day for a month and then once a day for 2 months. - Patient Instructions Diet: Regular Diet as Tolerated Diet, Other: Liquids and soft/bland foods for the next week Activity: As Tolerated Driving: May Drive Today Showering/Bathing: May Shower Notify Provider of: Fever, Increased Pain, Nausea and/or Vomiting Other/Special Instructions: 1. You were in the hospital for management of an acute upper gastrointestinal bleed caused by an ulcer in your stomach. The bleeding has stopped injure hemoglobin has stabilized. You did require a transfusion of one unit of packed red blood cells. I recommend that you take pantoprazole 40 mg twice daily for 1 month and then 1 time daily for 2 months. This is an acid blocking medication similar to Prilosec and will help to reduce your stomach acid and help the ulcer heal. This medication is preferred because it does not interact with clopidogrel (Plavix). 2. Please consume liquids as well as soft and bland foods such as mashed potatoes or cottage cheese for at least the next week. This will help reduce irritation to the ulcer and reduce the risk of having additional bleeding. 3. Do not take your blood pressure medications (metoprolol or lisinopril) tomorrow. You should restart your metoprolol when your systolic blood pressure rises to greater than 120. They can check your blood pressure at cardiac rehabilitation. If your blood pressure remains greater than 130 after the metoprolol is started you can restart your lisinopril. 4. Please seek medical attention if you have dizziness or feel like you're going to pass out, you have severe epigastric pain, vomiting of blood, have blood in your stool or black tarry stools. 5. Follow up with Adis REYEZ later this week to have your blood pressure rechecked and have your hemoglobin level repeated. 6. You may return to work next December 30 with no restrictions. - Discharge Plan Prescriptions/Med Rec: Pantoprazole [ProTONIX] 40 mg PO BIDAC #60 tab.cr Home Medications: Home Meds Aspirin [Adult Low Dose Aspirin EC] 81 mg PO DAILY 08/09/13 [History] Levothyroxine Sodium [Synthroid] 125 mcg PO DAILY 08/09/13 [History] Metoprolol Succinate [Toprol XL] 50 mg PO DAILY 08/09/13 [History] Clopidogrel [Plavix] 75 mg PO DAILY 12/20/16 [History] Lisinopril 10 mg PO DAILY 12/20/16 [History] Rosuvastatin Calcium 10 mg PO DAILY 12/20/16 [History] Pantoprazole [ProTONIX] 40 mg PO BIDAC #60 tab.cr 12/22/16 [Rx] Patient Handouts: Peptic Ulcer, Pantoprazole tablets Referrals: Adis Coello PA-C [Primary Care Provider] - (f/u this week - f/u hospital stay for bleeding gastric ulcer and blood loss anemia. Repeat hgb on the day of the visit) - Discharge Summary/Plan Comment DC Time >30 min.: No (25) - Patient Data Vitals - Most Recent: Last Vital Signs Temp 35.7 C 12/22/16 08:00 Pulse 88 12/22/16 08:00 Resp 18 12/22/16 08:00 BP 98/79 12/22/16 08:00 Pulse Ox 98 12/22/16 08:00 Weight - Most Recent: 81.7 kg I&O - Last 24 hours: Intake & Output 12/21/16 12/22/16 12/22/16 22:59 06:59 14:59 Intake Total 420 500 700 Output Total 500 800 Balance -80 -300 700 Lab Results - Last 24 hrs: Laboratory Results - last 24 hr 12/21/16 12/22/16 12/22/16 Range/Units 17:00 05:16 05:16 WBC 6.0 (4.5-11.0) K/uL RBC 3.34 L (4.30-5.90) M/uL Hgb 9.7 L 9.7 L (12.0-15.0) g/dL Hct 28.9 L (40.0-54.0) % MCV 87 (80-98) fL MCH 29 (27-31) pg MCHC 34 (32-36) % Plt Count 224 (150-400) K/uL Sodium 143 (140-148) mmol/L Potassium 4.2 (3.6-5.2) mmol/L Chloride 107 (100-108) mmol/L Carbon Dioxide 29 (21-32) mmol/L Anion Gap 6.6 (5.0-14.0) mmol/L BUN 15 D (7-18) mg/dL Creatinine 1.3 (0.8-1.3) mg/dL Est Cr Clr Drug Dosing 66.46 mL/min Estimated GFR (MDRD) 57 L (>60) Glucose 89 (74-106) mg/dL Calcium 8.4 L (8.5-10.1) mg/dL Med Orders - Current: Current Medications Aspirin (Halfprin) 81 mg PO DAILY [facility] Last Admin: 12/22/16 08:39 Dose: 81 mg Clopidogrel Bisulfate (Plavix) 75 mg PO DAILY [facility] Last Admin: 12/22/16 08:39 Dose: 75 mg Levothyroxine Sodium 75 mcg/ (Levothyroxine Sodium 50 mcg) 125 mcg PO ACBREAKFAST [facility] Last Admin: 12/22/16 07:48 Dose: 125 mcg Pantoprazole Sodium (Protonix) 40 mg PO BIDAC [facility] Last Admin: 12/22/16 07:47 Dose: 40 mg Rosuvastatin Calcium (Crestor) 10 mg PO DAILY [facility] Last Admin: 12/22/16 08:38 Dose: 10 mg Sucralfate (Carafate) 1 gm PO QIDACANDBED [facility] Last Admin: 12/22/16 11:26 Dose: 1 gm Discontinued Medications Epinephrine HCl (Adrenalin 1:1000) Confirm Administered Dose 1 mg .ROUTE .STK- MED ONE Stop: 12/20/16 12:48 Fentanyl (Sublimaze) Confirm Administered Dose 100 mcg .ROUTE .STK-MED ONE Stop: 12/20/16 13:26 Sodium Chloride (Normal Saline) 1,000 mls @ 250 mls/hr IV ASDIRECTED [facility] Last Admin: 12/20/16 10:26 Dose: 250 mls/hr Sodium Chloride (Normal Saline) 1,000 mls @ 125 mls/hr IV ASDIRECTED IVONNE Last Admin: 12/21/16 11:52 Dose: 125 mls/hr Midazolam HCl (Versed 1 Mg/Ml) Confirm Administered Dose 2 mg .ROUTE .STK-MED ONE Stop: 12/20/16 13:26 Naloxone HCl (Narcan) Confirm Administered Dose 0.4 mg .ROUTE .STK-MED ONE Stop: 12/20/16 14:48 Pantoprazole Sodium (Protonix Iv) 40 mg IVPUSH ONETIME ONE Stop: 12/20/16 10:16 Last Admin: 12/20/16 10:26 Dose: 40 mg Pantoprazole Sodium (Protonix Iv) 40 mg IVPUSH ONETIME ONE Stop: 12/20/16 21:01 Last Admin: 12/20/16 20:04 Dose: 40 mg Propofol (Diprivan 20 Ml) Confirm Administered Dose 200 mg .ROUTE .STK-MED ONE Stop: 12/20/16 13:26 *Q Meaningful Use (DIS) - VTE *Q VTE Criteria *Q: VTE Pharmacological Contraindications *Q: Active Hemorrhage - Stroke *Q Stroke Criteria *Q: - AMI *Q AMI Criteria *Q:
--- NOTE | 2016-12-24 10:26 | OR ---
DATE OF PROCEDURE: 12/20/2016 PREOPERATIVE DIAGNOSIS: Upper gastrointestinal hemorrhage. POSTOPERATIVE DIAGNOSES: Upper gastrointestinal hemorrhage, resolved; hiatal hernia; apparent esophageal varices. PROCEDURE: Esophagogastroduodenoscopy. ANESTHESIA: IV anesthesia with monitored anesthesia care. INDICATION: This 56-year-old white male vomited some blood and then had black tarry stools. He passed out at home. He came into the emergency room. A request was made for upper endoscopy. He did have a heart attack with stents placed about 3 weeks ago. He is on Plavix, which cannot be stopped. His hemoglobin went from about 14 to around 10. I counseled him for upper endoscopy with no plan for biopsy including risks and alternatives, and he gave his informed consent to proceed. DESCRIPTION OF PROCEDURE: The patient was placed in the left lateral decubitus position. IV anesthesia was administered by the Anesthesia Service. Time-out was held. The flexible video Olympus upper endoscope was passed through his mouth, down his esophagus, and into his stomach. The scope was easily passed through the pylorus into the duodenum , reaching its third portion. The scope was then slowly withdrawn, examining the mucosa throughout. At no point did we see any old or new blood. The scope was brought up through the unremarkable appearing duodenum. It was brought back through the pylorus. The antrum appeared unremarkable. The scope was retroflexed. The proximal stomach appeared unremarkable. The scope was straightened and we brought the scope up through a fairly small hiatal hernia. At this point, we saw a lesion in the distal esophagus which looked like it could be a nonbleeding varix. The scope was brought proximally. He did appear to have distal esophageal varices. The scope was then brought up through the remainder of the esophagus, which appeared unremarkable and it was removed. He tolerated the procedure well. Ronen Stone MD /[id number] [facility]
== END 2016-12-22 12:30 | disposition home or self-care (01) | DRG 378 ==
LOC: JP.ED 09:11 → JP.ICU 11:23 → UNDOADMIN 11:23 → JP.MS 12-21 15:07 → JP.ICU 12-21 15:50 → JP.MS 12-21 15:50
PROVIDERS: ADMIT Internal Medicine; ATTEND Internal Medicine
PROC: 0DJ08ZZ Inspection of Upper Intestinal Tract, Via Natural or Artificial Opening Endoscopic (ICD-10-PCS; principal; 2016-12-20)
PROC: 30233N1 Transfusion of Nonautologous Red Blood Cells into Peripheral Vein, Percutaneous Approach (ICD-10-PCS; 2016-12-21)
DX: K25.4 Chronic or unspecified gastric ulcer with hemorrhage (principal); D62 Acute posthemorrhagic anemia; I85.00 Esophageal varices without bleeding; I25.10 Atherosclerotic heart disease of native coronary artery without angina pectoris; I10 Essential (primary) hypertension; Z95.5 Presence of coronary angioplasty implant and graft; I25.2 Old myocardial infarction; E03.9 Hypothyroidism, unspecified; K21.9 Gastro-esophageal reflux disease without esophagitis; Z79.02 Long term (current) use of antithrombotics/antiplatelets; Z79.82 Long term (current) use of aspirin; Z79.899 Other long term (current) drug therapy; R42 Dizziness and giddiness; Z91.048 Other nonmedicinal substance allergy status
CPT/HCPCS: 36415; 36430; 76705; 80048; 80053; 85018; 85025; 85027; 85610; 86850; 86900; 86901; 86920; 86922; 96361; 96374; 99285-25; A9270-GY; C9113; J0171; J2250; J2310; J2704; J3010; J7040; P9016

== ENCOUNTER 2020-04-20 15:11 | Emergency (ER) | payer OTHER ==
[2020-04-20] MEDS ORDERED: Sodium Chloride 0.9% 10 ML Syringe FLUSH PRN (15:18)
[2020-04-20] MEDS ORDERED: Morphine 4 MG/ML Syringe IVPUSH PRN (15:19)
[2020-04-20] MEDS: Nitroglycerin 0.4 MG Tab.SL SL PRN ×2 (15:24→16:07)
--- NOTE | 2020-04-20 15:31 | EDM.PDOC ---
ED HPI GENERAL MEDICAL PROBLEM - General Chief Complaint: Chest Pain Stated Complaint: heart history pain shoulder across the back Time Seen by Provider: 04/20/20 15:18 Source of Information: Reports: Patient, Family, Old Records, RN Notes Reviewed History Limitations: Reports: No Limitations - History of Present Illness INITIAL COMMENTS - FREE TEXT/NARRATIVE: 59-year-old gentleman presents emergency department today complaint of chest pain nausea and shortness of breath, he states it started a couple hours ago has progressively gotten worse he did take 6 baby aspirin at home did not use his nitro he does have a known history of coronary artery disease recently underwent nuclear medicine perfusion study which showed mild ischemia follows with Dr. Lorenzo cardiology [facility] history of stenting stillaguamish vessel Chest Pain Score (Numeric/FACES): 8 - Related Data Allergies Allergy/AdvReac Type Severity Reaction Status Date / Time aluminum Allergy Rash Verified 04/06/20 09:28 lisinopril Allergy Cough Verified 04/20/20 15:23 Home Meds: Home Meds Aspirin [Adult Low Dose Aspirin EC] 81 mg PO DAILY 08/09/13 [History] Levothyroxine Sodium [Synthroid] 125 mcg PO DAILY 08/09/13 [History] Metoprolol Succinate [Toprol XL] 100 mg PO DAILY 08/09/13 [History] Clopidogrel [Plavix] 75 mg PO DAILY 12/20/16 [History] Lisinopril 10 mg PO DAILY 12/20/16 [History] Rosuvastatin Calcium 20 mg PO DAILY 12/20/16 [History] Losartan [Cozaar] 25 mg PO DAILY 04/05/20 [History] Nitroglycerin [Nitrostat] 0.4 mg SL ASDIRECTED 04/05/20 [History] Tamsulosin [Tamsulosin 24 Hr] 0.4 mg PO DAILY 04/05/20 [History] cycloSPORINE [Restasis] 1 each EYEBOTH ASDIRECTED 04/05/20 [History] prednisoLONE acetate [Pred Forte 1% Ophth Susp] 1 drop EYEBOTH DAILY 04/05/20 [History] Pantoprazole [ProTONIX] 40 mg PO DAILY 04/06/20 [History] Past Medical History Cardiovascular History: Reports: CAD (5), Hypertension, [place], Stents Gastrointestinal History: Reports: GERD Endocrine/Metabolic History: Reports: Hypothyroidism - Infectious Disease History Infectious Disease History: Reports: Chicken Pox Social & Family History - Family History Endocrine/Metabolic: Reports: None Dermatologic: Reports: None - Tobacco Use Tobacco Use Status *Q: Never Tobacco User - Caffeine Use Caffeine Use: Reports: Coffee - Recreational Drug Use Recreational Drug Use: No ED ROS GENERAL - Review of Systems Review Of Systems: See Below Constitutional: Reports: No Symptoms HEENT: Reports: No Symptoms Respiratory: Reports: Shortness of Breath Cardiovascular: Reports: Chest Pain, Dyspnea on Exertion GI/Abdominal: Reports: Nausea. Denies: Vomiting ED EXAM, GENERAL - Physical Exam Exam: See Below Exam Limited By: No Limitations General Appearance: Alert, Mild Distress Respiratory/Chest: No Respiratory Distress, Lungs Clear, Normal Breath Sounds, No Accessory Muscle Use, Chest Non-Tender Cardiovascular: Regular Rate, Rhythm, No Murmur GI/Abdominal: Soft, Non-Tender Course - Vital Signs Last Recorded V/S: Last Vital Signs Temp 96.8 F L 04/20/20 15:19 Pulse 93 04/20/20 16:16 Resp 14 04/20/20 16:16 BP 120/73 04/20/20 16:16 Pulse Ox 93 L 04/20/20 16:16 - Orders/Labs/Meds Orders: Active Orders 24 hr Category Date Time Status Cardiac Monitoring [RC] .As Directed Care 04/20/20 15:18 Active EKG Documentation Completion [RC] ASDIRECTED Care 04/20/20 15:19 Active EKG Documentation Completion [RC] ASDIRECTED Care 04/20/20 15:33 Active Peripheral IV Care [RC] . DIRECTED Care 04/20/20 15:19 Active Chest 1V Frontal [CR] Stat Exams 04/20/20 15:18 Taken Heparin Sodium/D5W [Heparin 25,000 Units in D5W 500 ML] Med 04/20/20 16:15 Ordered 25,000 units in 500 ml IV TITRATE Morphine Med 04/20/20 15:19 Active 4 mg IVPUSH Q10M PRN Nitroglycerin [Nitrostat] Med 04/20/20 15:19 Active 0.4 mg SL Q5M PRN Sodium Chloride 0.9% [Saline Flush] Med 04/20/20 15:18 Active 10 ml FLUSH ASDIRECTED PRN Peripheral IV Insertion Adult [OM.PC] Stat Oth 04/20/20 15:18 Ordered Saline Lock Insert [OM.PC] Stat Oth 04/20/20 15:18 Ordered EKG 12 Lead [EK] Stat Ther 04/20/20 15:18 Ordered EKG 12 Lead [EK] Stat Ther 04/20/20 15:33 Ordered Medication Orders Heparin Sodium/Dextrose (Heparin 25,000 Units In D5w 500 Ml) 25,000 units in 500 mls @ 43.2 mls/hr IV TITRATE IVONNE; Protocol Morphine Sulfate (Morphine) 4 mg IVPUSH Q10M PRN PRN Reason: Chest Pain Stop: 04/21/20 15:20 Nitroglycerin (Nitrostat) 0.4 mg SL Q5M PRN PRN Reason: Chest Pain Stop: 04/21/20 15:20 Last Admin: 04/20/20 16:07 Dose: 0.4 mg Documented by: Admin: 04/20/20 15:24 Dose: 0.4 mg Documented by: GREGORIA Sodium Chloride (Saline Flush) 10 ml FLUSH ASDIRECTED PRN PRN Reason: Keep Vein Open Last Admin: 04/20/20 15:24 Dose: 10 ml Documented by: [id number] Labs: Laboratory Tests 04/20/20 04/20/20 Range/Units 15:28 15:28 WBC 8.8 (4.5-11.0) K/uL RBC 5.58 (4.30-5.90) M/uL Hgb 15.4 H D (12.0-15.0) g/dL Hct 48.0 (40.0-54.0) % MCV 86 (80-98) fL MCH 28 (27-31) pg MCHC 32 (32-36) % Plt Count 288 (150-400) K/uL Neut % (Auto) 57 (36-66) % Lymph % (Auto) 34 (24-44) % [place] % (Auto) 6 (2-6) % Eos % (Auto) 2 (2-4) % Baso % (Auto) 1 (0-1) % Sodium 141 (140-148) mmol/L Potassium 3.7 (3.6-5.2) mmol/L Chloride 103 (100-108) mmol/L Carbon Dioxide 30 (21-32) mmol/L Anion Gap 8.5 (5.0-14.0) mmol/L BUN 18 (7-18) mg/dL Creatinine 1.4 H (0.8-1.3) mg/dL Est Cr Clr Drug Dosing 57.51 mL/min Estimated GFR (MDRD) 52 L (>60) Glucose 101 (74-106) mg/dL Calcium 9.1 (8.5-10.1) mg/dL Total Bilirubin 0.5 D (0.2-1.0) mg/dL AST 19 (15-37) U/L ALT 28 (12-78) U/L Alkaline Phosphatase 84 (46-116) U/L Troponin I 1.645 H* (0.000-0.056) ng/mL Total Protein 8.4 H (6.4-8.2) g/dL Albumin 4.0 (3.4-5.0) g/dL Globulin 4.4 H (2.3-3.5) g/dL Albumin/Globulin Ratio 0.9 L (1.2-2.2) Meds: Medications Generic Name Dose Route Start Last Admin Trade Name Freq PRN Reason Stop Dose Admin Heparin Sodium/Dextrose 25,000 units in 500 mls @ 43.2 mls/hr 04/20/20 16:15 Heparin 25,000 Units In D5w 500 Ml IV TITRATE IVONNE Protocol 12 UNITS/KG/HR Morphine Sulfate 4 mg 04/20/20 15:19 Morphine IVPUSH 04/21/20 15:20 Q10M PRN Chest Pain Nitroglycerin 0.4 mg 04/20/20 15:19 04/20/20 16:07 Nitrostat SL 04/21/20 15:20 0.4 mg Q5M PRN Administration Chest Pain Sodium Chloride 10 ml 04/20/20 15:18 04/20/20 15:24 Saline Flush FLUSH 10 ml ASDIRECTED PRN Administration Keep Vein Open Discontinued Medications Generic Name Dose Route Start Last Admin Trade Name Freq PRN Reason Stop Dose Admin Heparin Sodium (Porcine) 4,000 units 04/20/20 16:05 04/20/20 16:12 Heparin Sodium IVPUSH 04/20/20 16:06 4,000 units ONETIME ONE Administration Ticagrelor 180 mg 04/20/20 16:05 04/20/20 16:10 Brilinta PO 04/20/20 16:06 180 mg ONETIME ONE Administration Departure - Departure Time of Disposition: 16:19 Disposition: DC/Tfer to Acute Hospital 02 Reason for Transfer *Q: Primary PCI Indicated Condition: Fair Clinical Impression: Non-ST elevation myocardial infarction (NSTEMI) Referrals: Sharri Andre OT [Primary Care Provider] - Forms: ED Department Discharge Sepsis Event Note (ED) - Evaluation Sepsis Screening Result: No Definite Risk - Focused Exam Vital Signs: Vital Signs Temp Pulse Resp BP BP Pulse Ox 04/20/20 16:16 93 14 120/73 93 L 04/20/20 16:07 113/83 04/20/20 16:01 87 18 115/82 96 04/20/20 15:24 151/105 H 04/20/20 15:19 96.8 F L 89 16 151/105 H 98 - My Orders Last 24 Hours: My Active Orders 04/20/20 15:18 Cardiac Monitoring [RC] .As Directed Chest 1V Frontal [CR] Stat Sodium Chloride 0.9% [Saline Flush] 10 ml FLUSH ASDIRECTED PRN Peripheral IV Insertion Adult [OM.PC] Stat Saline Lock Insert [OM.PC] Stat EKG 12 Lead [EK] Stat 04/20/20 15:19 EKG Documentation Completion [RC] ASDIRECTED Peripheral IV Care [RC] . DIRECTED Morphine 4 mg IVPUSH Q10M PRN Nitroglycerin [Nitrostat] 0.4 mg SL Q5M PRN 04/20/20 15:33 EKG Documentation Completion [RC] ASDIRECTED EKG 12 Lead [EK] Stat 04/20/20 16:15 Heparin Sodium/D5W [Heparin 25,000 Units in D5W 500 ML] 25,000 units in 500 ml IV TITRATE - Assessment/Plan Last 24 Hours: My Active Orders 04/20/20 15:18 Cardiac Monitoring [RC] .As Directed Chest 1V Frontal [CR] Stat Sodium Chloride 0.9% [Saline Flush] 10 ml FLUSH ASDIRECTED PRN Peripheral IV Insertion Adult [OM.PC] Stat Saline Lock Insert [OM.PC] Stat EKG 12 Lead [EK] Stat 04/20/20 15:19 EKG Documentation Completion [RC] ASDIRECTED Peripheral IV Care [RC] . DIRECTED Morphine 4 mg IVPUSH Q10M PRN Nitroglycerin [Nitrostat] 0.4 mg SL Q5M PRN 04/20/20 15:33 EKG Documentation Completion [RC] ASDIRECTED EKG 12 Lead [EK] Stat 04/20/20 16:15 Heparin Sodium/D5W [Heparin 25,000 Units in D5W 500 ML] 25,000 units in 500 ml IV TITRATE Plan: Assessment Acuity = acute Site and laterality = non-ST elevation myocardial infarction complicated patient with known history of coronary artery disease Etiology = probable underlying coronary artery disease Manifestations = dyspnea, nausea Location of injury = Home Lab values = CBC unremarkable us creatinine elevated 1.4 consistent chronic renal failure stage G3 a troponin elevated 1.645 chest x-ray shows no acute p rocess official read radiologist pending EKG has ST depressions in leads V3, V4, V5, V6 as well as leads I and II consistent with ischemia Plan He had chest pain improvement with 1 nitro had taken aspirin at home he was given additional nitro while in the ED Brilinta 180 mg as well as heparin bolus of 4000 units and heparin drip will be initiated in route he will be transported via EMS ground. I did call discussed case with Dr. Beaver at [address] [facility] emergency department kindly excepted the patient in transport This note was dictated using [id number] voice recognition software please call with any questions on syntax or grammar.
[2020-04-20] MEDS ORDERED: Heparin Sodium 5,000 Units/ML Vial IVPUSH ONE (16:05)
[2020-04-20] MEDS ORDERED: Ticagrelor 90 MG Tab PO ONE (16:05)
[2020-04-20] MEDS ORDERED: Heparin Sodium/D5W 25,000 UNITS/500 ML BAG IV SCH (16:15)
[2020-04-20 16:21] VITALS: BP 98/69; PULSE 111
[2020-04-20] MEDS ORDERED: Sodium Chloride 0.9% 1,000 ML IV SCH (16:30)
--- NOTE | 2020-04-24 10:13 | CR ---
CHEST: Portable 04/20/2020 at 3:46 PM CLINICAL HISTORY:Chest pain COMPARISON:2017 FINDINGS: The heart size, pulmonary vascularity and hilar structures are normal. No infiltrate effusion or pneumothorax is seen. There are atherosclerotic changes in the aorta. IMPRESSION: No acute cardiopulmonary process.
== END 2020-04-20 17:18 ==
LOC: JP.ED 15:11
DX: I21.4 Non-ST elevation (NSTEMI) myocardial infarction (principal); I25.10 Atherosclerotic heart disease of native coronary artery without angina pectoris; I10 Essential (primary) hypertension; I25.2 Old myocardial infarction; K21.9 Gastro-esophageal reflux disease without esophagitis; E03.9 Hypothyroidism, unspecified; Z91.048 Other nonmedicinal substance allergy status; Z88.8 Allergy status to other drugs, medicaments and biological substances; Z79.82 Long term (current) use of aspirin; Z79.02 Long term (current) use of antithrombotics/antiplatelets; Z79.899 Other long term (current) drug therapy; Z95.5 Presence of coronary angioplasty implant and graft
CPT/HCPCS: 36415; 71045; 80053; 84484; 85025; 93005; 96374; 96375; 99285; A9270; J1644; J7030

== ENCOUNTER 2020-10-27 14:34 | Emergency (ER) | payer OTHER ==
--- NOTE | 2020-10-27 15:53 | EDM.PDOC ---
ED HPI GENERAL MEDICAL PROBLEM - General Chief Complaint: Abdominal Pain Stated Complaint: MID BACK PAIN AND STOMACH PAIN Time Seen by Provider: 10/27/20 15:20 Source of Information: Reports: Patient, Family History Limitations: Reports: No Limitations - History of Present Illness INITIAL COMMENTS - FREE TEXT/NARRATIVE: 60-year-old male who has been having abdominal and back pain for the past 2 months. He has been getting a fairly thorough work-up at the clinic including CT scan recently and labs, they was supposed to get a call about him setting up an EGD and colonoscopy but they had not heard from him and he was having increased pain today after eating an apple. They talked to a friend who is an employee at the clinic, and she told him to go right to the emergency room to get a "HIDA scan". He is actually feeling better at this time, physically stable and afebrile. He localizes his pain mostly to the epigastric area, and his back hurts significantly at night. Duration: Chronic (Symptoms have been waxing and waning for a few months), Waxing/Waning Location: Reports: Abdomen (Epigastric area), Back Quality: Reports: Burning, Stabbing Severity: Moderate Associated Symptoms: Reports: Chest Pain, Loss of Appetite, Malaise. Denies: Co nfusion, Cough, Fever/Chills, Headaches Right Upper Abdomen Pain Score (Numeric/FACES): 4 - Related Data Allergies Allergy/AdvReac Type Severity Reaction Status Date / Time aluminum Allergy Rash Verified 10/27/20 16:07 lisinopril Allergy Cough Verified 10/27/20 16:07 Home Meds: Home Meds Aspirin [Adult Low Dose Aspirin EC] 81 mg PO DAILY 08/09/13 [History] Levothyroxine Sodium [Synthroid] 125 mcg PO DAILY 08/09/13 [History] Metoprolol Succinate [Toprol XL] 100 mg PO DAILY 08/09/13 [History] Clopidogrel [Plavix] 75 mg PO DAILY 12/20/16 [History] Rosuvastatin Calcium 20 mg PO DAILY 12/20/16 [History] Nitroglycerin [Nitrostat] 0.4 mg SL ASDIRECTED 04/05/20 [History] Tamsulosin [Tamsulosin 24 Hr] 0.4 mg PO DAILY 04/05/20 [History] cycloSPORINE [Restasis] 1 each EYEBOTH ASDIRECTED 04/05/20 [History] prednisoLONE acetate [Pred Forte 1% Ophth Susp] 1 drop EYEBOTH DAILY 04/05/20 [History] Pantoprazole [ProTONIX] 40 mg PO BID 04/06/20 [History] Sucralfate [Carafate] 1 gm PO TIDAC #10 cup 10/27/20 [Rx] Past Medical History Cardiovascular History: Reports: CAD (5), Hypertension, [place], Stents Gastrointestinal History: Reports: GERD Endocrine/Metabolic History: Reports: Hypothyroidism - Infectious Disease History Infectious Disease History: Reports: Chicken Pox Social & Family History - Family History Endocrine/Metabolic: Reports: None Dermatologic: Reports: None - Caffeine Use Caffeine Use: Reports: Coffee ED ROS GENERAL - Review of Systems Review Of Systems: See Below Constitutional: Reports: Malaise. Denies: Fever, Chills HEENT: Reports: No Symptoms Respiratory: Denies: Shortness of Breath Cardiovascular: Denies: Chest Pain GI/Abdominal: Reports: Abdominal Pain, Decreased Appetite. Denies: Constipation, Diarrhea : Reports: No Symptoms Skin: Reports: Bruising (Had some spontaneous bruising on his right abdomen a few weeks ago, unknown relation to current symptoms) Neurological: Reports: No Symptoms Psychiatric: Reports: No Symptoms ED EXAM, GI/ABD - Physical Exam Exam: See Below Exam Limited By: No Limitations General Appearance: Alert, No Apparent Distress Eyes: Bilateral: Normal Appearance Head: Atraumatic Respiratory/Chest: Lungs Clear Cardiovascular: Regular Rate, Rhythm GI/Abdominal Exam: Soft, Tender (Mild discomfort to palpation through the upper abdomen and epigastric area. No guarding or rebound.) Extremities: Normal Inspection. No: Pedal Edema Neurological: Alert, Oriented Psychiatric: Normal Affect, Normal Mood Skin Exam: Warm, Dry Course - Vital Signs Last Recorded V/S: Last Vital Signs Temp 98.3 F 10/27/20 16:06 Pulse 78 10/27/20 17:28 Resp 12 10/27/20 16:06 BP 125/84 10/27/20 17:28 Pulse Ox 96 10/27/20 17:28 - Orders/Labs/Meds Orders: Active Orders 24 hr Category Date Time Status Abdomen Ltd [US] Stat Exams 10/27/20 15:53 Taken Labs: Laboratory Tests 10/27/20 10/27/20 Range/Units 16:06 16:06 WBC 8.2 (4.5-11.0) K/uL RBC 4.83 (4.30-5.90) M/uL Hgb 12.3 D (12.0-15.0) g/dL Hct 38.8 L (40.0-54.0) % MCV 80 (80-98) fL MCH 26 L (27-31) pg MCHC 32 (32-36) % Plt Count 391 (150-400) K/uL Neut % (Auto) 69.1 H (36-66) % Lymph % (Auto) 21.9 L (24-44) % [place] % (Auto) 7.9 H (2-6) % Eos % (Auto) 0.6 L (2-4) % Baso % (Auto) 0.5 (0-1) % ESR 51 H (0-20) mm/hr Sodium 138 L (140-148) mmol/L Potassium 4.5 (3.6-5.2) mmol/L Chloride 99 L (100-108) mmol/L Carbon Dioxide 32 (21-32) mmol/L Anion Gap 11.5 (5.0-14.0) mmol/L BUN 19 H (7-18) mg/dL Creatinine 1.2 (0.8-1.3) mg/dL Est Cr Clr Drug Dosing 66.28 mL/min Estimated GFR (MDRD) > 60 (>60) Glucose 90 (74-106) mg/dL Calcium 9.0 (8.5-10.1) mg/dL Total Bilirubin 0.5 (0.2-1.0) mg/dL AST 17 (15-37) U/L ALT 15 (12-78) U/L Alkaline Phosphatase 78 (46-116) U/L Total Protein 8.0 (6.4-8.2) g/dL Albumin 3.2 L (3.4-5.0) g/dL Globulin 4.8 H (2.3-3.5) g/dL Albumin/Globulin Ratio 0.7 L (1.2-2.2) Amylase 48 (25-115) U/L Lipase 110 (73-393) U/L - Re-Assessments/Exams Free Text/Narrative Re-Assessment/Exam: 10/27/20 17:48 Symptoms seem to be related to whether his stomach has food in it or not. With his back hurting at night, increased pain after eating this sounds like a duodenal ulcer issue. CBC, CMP, amylase lipase and sed rate were obtained, sed rate is mildly elevated at 51 but everything else is reassuring. 10/27/20 17:49 Stool guaiac was obtained and it was negative. A gallbladder ultrasound was ordered and that was also normal. A prescription for Carafate to take 1 g 3 times a day [facility] and is going to start that tonight. He will continue his other medications. He needs to call his primary provider on Friday to discuss an EGD or GI swallow with barium and colonoscopy to finish the evaluation. Departure - Departure Time of Disposition: 18:02 Disposition: Home, Self-Care 01 Clinical Impression: Chronic epigastric pain - Discharge Information Prescriptions: Sucralfate [Carafate] 1 gm PO TIDAC #10 cup Instructions: Abdominal Pain, Adult, [id number] Referrals: Lavon Constantino NP [Primary Care Provider] - Forms: ED Department Discharge Care Plan Goals: Continue your current medications, and add Carafate 3 times a day as prescribed. Call Friday to discuss further evaluation with your primary provider. Return sooner if worsening such as vomiting blood, persistent pain, or fever. Sepsis Event Note (ED) - Focused Exam Vital Signs: Vital Signs Temp Pulse Resp BP Pulse Ox 10/27/20 17:28 78 125/84 96 10/27/20 16:06 98.3 F 87 12 143/92 H 99 10/27/20 15:00 98.3 F 87 12 143/92 H 99 - My Orders Last 24 Hours: My Active Orders 10/27/20 15:53 Abdomen Ltd [US] Stat - Assessment/Plan Last 24 Hours: My Active Orders 10/27/20 15:53 Abdomen Ltd [US] Stat
[2020-10-27] MEDS ORDERED: fentaNYL 100 MCG/2 ML SDV IVPUSH ONE (16:03)
[2020-10-27 17:28] VITALS: BP 125/84; PULSE 78
--- NOTE | 2020-10-30 09:13 | US ---
Abdomen Ltd CLINICAL HISTORY: Epigastric pain COMPARISON: 12/20/2016. TECHNIQUE: Real-time images were obtained through the right upper quadrant. FINDINGS: The liver is free of mass or biliary dilatation. Echotexture is normal throughout. The gallbladder has normal appearance. The common bile duct measures 3 mm. The pancreas is partially obscured. No mass is seen. The right kidney measures 10.2 x 4.7 x 5.9 cm. Cortical thickness is 1.4 cm. The IVC is normal. IMPRESSION: Moderately obscured pancreas. Otherwise, essentially negative right upper quadrant ultrasound
== END 2020-10-27 18:02 | disposition home or self-care (01) ==
LOC: JP.ED 14:34
DX: R10.13 Epigastric pain (principal); R10.11 Right upper quadrant pain; G89.29 Other chronic pain; I25.10 Atherosclerotic heart disease of native coronary artery without angina pectoris; I10 Essential (primary) hypertension; I25.2 Old myocardial infarction; K21.9 Gastro-esophageal reflux disease without esophagitis; E03.9 Hypothyroidism, unspecified; Z88.8 Allergy status to other drugs, medicaments and biological substances; Z79.82 Long term (current) use of aspirin; Z79.02 Long term (current) use of antithrombotics/antiplatelets; Z79.899 Other long term (current) drug therapy
CPT/HCPCS: 36415; 76705; 76705-26; 80053; 82150; 82272; 83690; 85025; 85651; 99284-25

== ENCOUNTER 2020-11-01 10:18 | Emergency (ER) | payer OTHER ==
[2020-11-01 10:45] VITALS: BP 139/90; PULSE 88
--- NOTE | 2020-11-01 11:03 | EDM.PDOC ---
ED HPI GENERAL MEDICAL PROBLEM - General Chief Complaint: Back Pain or Injury Stated Complaint: SVERE BACK PAIN Time Seen by Provider: 11/01/20 10:55 Source of Information: Reports: Patient, Family, RN Notes Reviewed History Limitations: Reports: No Limitations - History of Present Illness INITIAL COMMENTS - FREE TEXT/NARRATIVE: 60-year-old gentleman presents emergency department today with difficulty with urination, he has had a little output throughout the night he has a known history of BPH does follow with urology he is scheduled for an MRI on 21 November did contact his urologist morning with complaints of urinary retention was referred to the emergency department for further evaluation. He states he is having some back pain with this as well as some abdominal pain Lower Back Pain Score (Numeric/FACES): 9 - Related Data Allergies Allergy/AdvReac Type Severity Reaction Status Date / Time aluminum Allergy Rash Verified 11/01/20 10:43 lisinopril Allergy Cough Verified 11/01/20 10:43 Home Meds: Home Meds Aspirin [Adult Low Dose Aspirin EC] 81 mg PO DAILY 08/09/13 [History] Levothyroxine Sodium [Synthroid] 125 mcg PO DAILY 08/09/13 [History] Metoprolol Succinate [Toprol XL] 100 mg PO DAILY 08/09/13 [History] Clopidogrel [Plavix] 75 mg PO DAILY 12/20/16 [History] Rosuvastatin Calcium 20 mg PO DAILY 12/20/16 [History] Nitroglycerin [Nitrostat] 0.4 mg SL ASDIRECTED 04/05/20 [History] Tamsulosin [Tamsulosin 24 Hr] 0.4 mg PO DAILY 04/05/20 [History] cycloSPORINE [Restasis] 1 each EYEBOTH ASDIRECTED 04/05/20 [History] prednisoLONE acetate [Pred Forte 1% Ophth Susp] 1 drop EYEBOTH DAILY 04/05/20 [History] Pantoprazole [ProTONIX] 40 mg PO BID 04/06/20 [History] Sucralfate [Carafate] 1 gm PO TIDAC #10 cup 10/27/20 [Rx] Past Medical History Cardiovascular History: Reports: CAD, Hypertension, [place], Stents Gastrointestinal History: Reports: GERD Genitourinary History: Reports: BPH Endocrine/Metabolic History: Reports: Hypothyroidism - Infectious Disease History Infectious Disease History: Reports: Chicken Pox - Past Surgical History Cardiovascular Surgical History: Reports: Coronary Artery Bypass Social & Family History - Family History Endocrine/Metabolic: Reports: None Dermatologic: Reports: None - Tobacco Use Tobacco Use Status *Q: Never Tobacco User - Caffeine Use Caffeine Use: Reports: Coffee - Recreational Drug Use Recreational Drug Use: No ED ROS GENERAL - Review of Systems Review Of Systems: See Below Constitutional: Reports: No Symptoms Respiratory: Reports: No Symptoms Cardiovascular: Reports: No Symptoms GI/Abdominal: Reports: Abdominal Pain : Reports: Urinary Retention Musculoskeletal: Reports: Back Pain ED EXAM, RENAL/ - Physical Exam Exam: See Below Exam Limited By: No Limitations General Appearance: Alert, WD/WN, No Apparent Distress Respiratory/Chest: No Respiratory Distress GI/Abdominal: Soft, Tender (Tender over the bladder) Course - Vital Signs Last Recorded V/S: Last Vital Signs Temp 97 F 11/01/20 10:42 Pulse 88 11/01/20 10:42 Resp 15 11/01/20 10:44 BP 139/90 11/01/20 10:42 Pulse Ox 98 11/01/20 10:44 - Orders/Labs/Meds Orders: Active Orders 24 hr Category Date Time Status Bladder Scan [RC] ASDIRECTED Care 11/01/20 11:01 Active Insert Samson Catheter [Insert Urinary Catheter] [OM.PC] Care 11/01/20 11:45 Ordered Q24H Urinary Catheter Assessment [RC] ASDIRECTED Care 11/01/20 11:34 Active Meds: Medications Discontinued Medications Generic Name Dose Route Start Last Admin Trade Name Freq PRN Reason Stop Dose Admin Ketorolac Tromethamine 30 mg 11/01/20 12:12 11/01/20 12:46 Ketorolac 30 Mg/Ml Sdv IM 11/01/20 12:13 30 mg ONETIME ONE Administration Lidocaine HCl 10 ml 11/01/20 11:37 11/01/20 11:41 Lidocaine 2% Jelly 10 Ml Urojet MUCMEM 11/01/20 11:38 10 ml ONETIME ONE Administration Departure - Departure Time of Disposition: 13:19 Disposition: Home, Self-Care 01 Condition: Fair Clinical Impression: Acute urinary retention - Discharge Information Instructions: Acute Urinary Retention, Male Referrals: Lavon Constantino NP [Primary Care Provider] - Forms: ED Department Discharge Additional Instructions: Continue to use the leg bag until reevaluated by primary care, continue on your regular medications Sepsis Event Note (ED) - Evaluation Sepsis Screening Result: No Definite Risk - Focused Exam Vital Signs: Vital Signs Temp Pulse Resp BP Pulse Ox 11/01/20 10:44 15 98 11/01/20 10:42 97 F 88 15 139/90 98 - My Orders Last 24 Hours: My Active Orders 11/01/20 11:01 Bladder Scan [RC] ASDIRECTED 11/01/20 11:34 Urinary Catheter Assessment [RC] ASDIRECTED 11/01/20 11:45 Insert Samson Catheter [Insert Urinary Catheter] [OM.PC] Q24H - Assessment/Plan Last 24 Hours: My Active Orders 11/01/20 11:01 Bladder Scan [RC] ASDIRECTED 11/01/20 11:34 Urinary Catheter Assessment [RC] ASDIRECTED 11/01/20 11:45 Insert Samson Catheter [Insert Urinary Catheter] [OM.PC] Q24H Plan: Assessment Acuity = acute Site and laterality = acute urinary retention Etiology = probably secondary to BPH Manifestations = back pain improved with Toradol Location of injury = Home Lab values = none Plan He does have an appointment with urology on 21 November the meantime he will be put in the leg bag then follow-up primary care in the next 3 to 5 days for reevaluation This note was dictated using [employer] voice recognition software please call with any questions on syntax or grammar.
[2020-11-01] MEDS ORDERED: Lidocaine 2% Jelly 10 ML Urojet MUCMEM ONE (11:37)
[2020-11-01] MEDS ORDERED: Ketorolac 30 MG/ML SDV IM ONE (12:12)
== END 2020-11-01 13:46 | disposition home or self-care (01) ==
LOC: JP.ED 10:18
DX: N40.1 Benign prostatic hyperplasia with lower urinary tract symptoms (principal); R33.8 Other retention of urine; I25.10 Atherosclerotic heart disease of native coronary artery without angina pectoris; I10 Essential (primary) hypertension; I25.2 Old myocardial infarction; K21.9 Gastro-esophageal reflux disease without esophagitis; N40.0 Benign prostatic hyperplasia without lower urinary tract symptoms; E03.9 Hypothyroidism, unspecified; Z88.8 Allergy status to other drugs, medicaments and biological substances; Z91.048 Other nonmedicinal substance allergy status; Z79.02 Long term (current) use of antithrombotics/antiplatelets; Z79.82 Long term (current) use of aspirin; Z79.899 Other long term (current) drug therapy
CPT/HCPCS: 51702; 96372; 99283; J1885

== ENCOUNTER 2020-11-03 07:03 | Day surgery (SDC) | payer OTHER ==
[~2020-11-03 07:03] MED LIST: Dextrose 5%-Lactated Ringers 1,000 ML IV SCH
[2020-11-03] MEDS ORDERED: Midazolam 1 MG/ML 2 ML SDV ONE (07:41)
[2020-11-03] MEDS ORDERED: fentaNYL 100 MCG/2 ML SDV ONE (07:41)
[2020-11-03] MEDS ORDERED: Propofol 200 MG/20 ML SDV ONE (07:41)
[2020-11-03 10:25] VITALS: BP 135/84; PULSE 65
--- NOTE | 2020-11-12 13:25 | OR ---
DATE OF PROCEDURE: 11/03/2020 SURGEON: Jaskaran Ritter MD PREOPERATIVE DIAGNOSES: Abdominal pain and weight loss. POSTOPERATIVE DIAGNOSES: Abdominal pain and weight loss associated with: 1. Mild antral gastritis. 2. Minimal colonic diverticulosis. PROCEDURES PERFORMED: 1. Esophagogastroduodenoscopy with antral biopsies for CLOtest. 2. Flexible colonoscopy. ANESTHESIA: IV sedation. INDICATION FOR PROCEDURE: The patient presents with some ongoing abdominal discomfort and weight loss. The plan is to proceed with upper and lower endoscopy for diagnostic purposes. Potential risks including bleeding and perforation were discussed, and the patient wishes to proceed. DETAILS OF PROCEDURE: The patient was taken to the operating room and placed in a left lateral decubitus position. IV sedation was administered after which the upper GI endoscope was passed orally through the length of the esophagus into the stomach with retroflexion view of the fundus, and thereafter, through the pyloric channel into the proximal duodenum. Findings included normal hypopharynx, larynx, upper esophageal sphincter, and esophageal body. At the EG junction, no significant hiatal hernia was present, nor was there any significant inflammation or stricturing. There was no upward extension of the gastroesophageal junction mucosal line. Within the antrum, there was some patchy redness, but without erosions or ulcers. The pyloric channel and the duodenum to the junction of third and fourth portions were unremarkable. Biopsies were obtained from the antrum and sent for CLOtest for H pylori. Minimal bleeding from the biopsy site was seen, and the procedure was then concluded. Initial digital rectal exam was performed. The colonoscope was passed into the rectum with retroflexion revealing uncomplicated hemorrhoidal columns. The scope was eventually passed to the level of the cecum. The prep was somewhat marginal in terms of there being quite a bit of liquid stool, but in general, the vast majority of the structures were reasonably well seen, and we would not be missing any major pathology. The scope was then withdrawn, the above findings reconfirmed, and the procedure was concluded. There did not appear to be any mucosal abnormalities accounting for the patient's pain and weight loss . I did review the patient's CT scan with , and the celiac, superior mesenteric, and inferior mesenteric arteries were all widely open, and there would be no suggestion of a mesenteric ischemic process based on the visualization of those vessels. Jaskaran Ritter MD /[id number]
== END 2020-11-03 11:11 | disposition home or self-care (01) ==
LOC: JP.SDS 07:03
PROVIDERS: ATTEND Surgery
DX: K57.30 Diverticulosis of large intestine without perforation or abscess without bleeding (principal); K29.70 Gastritis, unspecified, without bleeding; R63.4 Abnormal weight loss; K64.9 Unspecified hemorrhoids; I25.10 Atherosclerotic heart disease of native coronary artery without angina pectoris; E78.5 Hyperlipidemia, unspecified; I12.9 Hypertensive chronic kidney disease with stage 1 through stage 4 chronic kidney disease, or unspecified chronic kidney disease; N18.30 Chronic kidney disease, stage 3 unspecified; Z95.1 Presence of aortocoronary bypass graft
CPT/HCPCS: 43239; 45378; 87081; J2250; J2704; J3010; J7121

== ENCOUNTER 2020-11-06 12:58 | Emergency (ER) | payer OTHER ==
--- NOTE | 2020-11-06 13:35 | EDM.PDOC ---
ED HPI GENERAL MEDICAL PROBLEM - General Chief Complaint: General Stated Complaint: MED[facility] Time Seen by Provider: 11/06/20 13:00 Source of Information: Reports: Patient, EMS, Family History Limitations: Reports: No Limitations - History of Present Illness INITIAL COMMENTS - FREE TEXT/NARRATIVE: This is a 60 year old male presenting after a fall. The patient reports that over the past one week he has had increasing weakness and numbness of his lower extremities. Last night around midnight he was trying to get to bed when his legs gave out on him and they were so weak he couldn't get back up. He ended up crawling and dragging his right leg. He reports numbness of bilateral legs basically from the hips/groin and down, worse on the right. The weakness is worse on the right as well. He notes that he has been having abdominal and back pain over the past several weeks. He has been evaluated in clinic and the ED for these symptoms. 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 The patient also notes that he has been having difficulty urinating and actually had a catheter placed last week that drained >1000 mL of urine. he still has the catheter in place today. After his fall last night, he does note some mild hip pain and right ankle pain. The ankle is swollen and bruised. He also feels like his right knee is swollen. He denies syncope and denies hitting his head or other injuries or trauma from this fall. Right Hip Pain Score (Numeric/FACES): 5 - Related Data Allergies Allergy/AdvReac Type Severity Reaction Status Date / Time aluminum Allergy Rash Verified 11/03/20 10:59 lisinopril Allergy Cough Verified 11/03/20 10:59 Home Meds: Home Meds Aspirin [Adult Low Dose Aspirin EC] 81 mg PO DAILY 08/09/13 [History] Levothyroxine Sodium [Synthroid] 125 mcg PO DAILY 08/09/13 [History] Metoprolol Succinate [Toprol XL] 100 mg PO DAILY 08/09/13 [History] Clopidogrel [Plavix] 75 mg PO DAILY 12/20/16 [History] Rosuvastatin Calcium 20 mg PO DAILY 12/20/16 [History] Nitroglycerin [Nitrostat] 0.4 mg SL ASDIRECTED 04/05/20 [History] Tamsulosin [Tamsulosin 24 Hr] 0.4 mg PO DAILY 04/05/20 [History] cycloSPORINE [Restasis] 1 each EYEBOTH ASDIRECTED 04/05/20 [History] prednisoLONE acetate [Pred Forte 1% Ophth Susp] 1 drop EYEBOTH DAILY 04/05/20 [History] Pantoprazole [ProTONIX] 40 mg PO BID 04/06/20 [History] Sucralfate [Carafate] 1 gm PO TIDAC #10 cup 10/27/20 [Rx] Past Medical History Cardiovascular History: Reports: CAD, Hypertension, ME, Stents Gastrointestinal History: Reports: GERD Genitourinary History: Reports: BPH Endocrine/Metabolic History: Reports: Hypothyroidism - Infectious Disease History Infectious Disease History: Reports: Chicken Pox - Past Surgical History Cardiovascular Surgical History: Reports: Coronary Artery Bypass GI Surgical History: Reports: Colonoscopy, EGD Social & Family History - Family History Endocrine/Metabolic: Reports: None Dermatologic: Reports: None - Tobacco Use Tobacco Use Status *Q: Never Tobacco User - Caffeine Use Caffeine Use: Reports: Coffee - Recreational Drug Use Recreational Drug Use: No ED ROS GENERAL - Review of Systems Review Of Systems: Comprehensive ROS is negative, except as noted in HPI. ED EXAM, GENERAL - Physical Exam Exam: See Below Exam Limited By: No Limitations General Appearance: Alert, No Apparent Distress Nose: Normal Inspection Throat/Mouth: Normal Inspection Head: Atraumatic, Normocephalic Neck: Supple, Non-Tender, Full Range of Motion Respiratory/Chest: No Respiratory Distress, Lungs Clear, Normal Breath Sounds, No Accessory Muscle Use Cardiovascular: Regular Rate, Rhythm GI/Abdominal: Soft, Non-Tender (Male) Exam: Other (catheter in place draining dark yellow urine) Back Exam: Normal Inspection. No: Paraspinal Tenderness, Vertebral Tenderness Extremities: Other (Right leg held partially flexed and externally rotated. Right hip is mildly tender to palpation. The right knee appears mildly swollen, but is non-tender and pain free to passive ROM. Right ankle is swollen and ecchymotic with tenderness to palpation.) Neurological: Alert, Oriented, Sensory/Motor Deficit (bilateral lower extremity weakness, R>L. 3-4/5 on the left and 2-3/5 on the right. sensation is diminished to bilateral lower extremities diffusely to sharp and dull, R>L. ) Psychiatric: Normal Affect, Normal Mood Skin Exam: Warm, Dry, No Rash ED GENERAL MEDICAL PROCEDURES - Splinting Right Lower Extremity Pre-procedure NV status: Normal Post-procedure NV status: Normal Splint Type: Custom Splint Material: Fiberglass Splint Design: Posterior Applied & Form Fitted By: Provider Provider Post-Splint Application NV Check: NV Status Normal, Good Position Complications: No Progress/Comments: A short leg posterior orthoglass splint was applied to the RLE. Course - Vital Signs Last Recorded V/S: Last Vital Signs Temp Pulse 97 11/06/20 16:30 Resp 16 11/06/20 15:01 BP 119/89 11/06/20 16:30 Pulse Ox 100 11/06/20 16:30 - Orders/Labs/Meds Labs: Laboratory Tests 11/06/20 11/06/20 11/06/20 Range/Units 13:22 13:22 Unknown WBC 9.5 (4.5-11.0) K/uL RBC 4.91 (4.30-5.90) M/uL Hgb 12.3 (12.0-15.0) g/dL Hct 39.3 L (40.0-54.0) % MCV 80 (80-98) fL MCH 25 L (27-31) pg MCHC 31 L (32-36) % Plt Count 380 (150-400) K/uL Neut % (Auto) 74.7 H (36-66) % Lymph % (Auto) 17.2 L (24-44) % [place]ockley % (Auto) 7.4 H (2-6) % Eos % (Auto) 0.5 L (2-4) % Baso % (Auto) 0.2 (0-1) % ESR 48 H (0-20) mm/hr Sodium 138 L (140-148) mmol/L Potassium 4.2 (3.6-5.2) mmol/L Chloride 98 L (100-108) mmol/L Carbon Dioxide 30 (21-32) mmol/L Anion Gap 14.2 H (5.0-14.0) mmol/L BUN 12 (7-18) mg/dL Creatinine 1.2 (0.8-1.3) mg/dL Est Cr Clr Drug Dosing 66.28 mL/min Estimated GFR (MDRD) > 60 (>60) Glucose 93 (74-106) mg/dL Calcium 8.9 (8.5-10.1) mg/dL Creatine Kinase 98 (39-308) U/L C-Reactive Protein 4.96 H (0.0-0.3) mg/dL Urine Color Yellow (YELLOW) Urine Appearance Cloudy A (CLEAR) Urine pH 5.5 (5.0-8.0) Ur Specific Sabael 1.020 (1.008-1.030) Urine Protein Negative (NEGATIVE) mg/dL Urine Glucose (UA) Negative (NEGATIVE) mg/dL Urine Ketones 15 H (NEGATIVE) mg/dL Urine Occult Blood Large H (NEGATIVE) Urine Nitrite Positive H (NEGATIVE) Urine Bilirubin Negative (NEGATIVE) Urine Urobilinogen 0.2 (0.2-1.0) EU/dL Ur Leukocyte Esterase Trace H (NEGATIVE) Urine RBC 50-75 H (0-5) Urine WBC 5-10 H (0-5) Ur Epithelial Cells Not seen Amorphous Sediment Not seen Urine Bacteria Many Urine Mucus Not seen Meds: Medications Discontinued Medications Generic Name Dose Route Start Last Admin Trade Name Freq PRN Reason Stop Dose Admin Gadoteridol 15 ml 11/06/20 14:00 11/06/20 14:39 Gadoteridol 279.3 Mg/Ml 15 Ml Sdv IV 15 ml .A DIRECTED IVONNE Administration Departure - Departure Time of Disposition: 16:35 Disposition: DC/Tfer to [facility] 02 Clinical Impression: Fracture of fibula, distal, right, closed, Bilateral leg weakness, Bilateral leg numbness - Discharge Information Referrals: Lavon Constantino, CHART COLLECTOR [Primary Care Provider] - Forms: ED Department Discharge Sepsis Event Note (ED) - Evaluation Sepsis Screening Result: No Definite Risk - Focused Exam Vital Signs: Vital Signs Pulse Resp BP Pulse Ox 11/06/20 16:30 97 119/89 100 11/06/20 15:01 106 H 16 113/70 93 L 11/06/20 13:25 96 15 145/91 H 99 11/06/20 13:22 96 15 145/91 H 99 - Assessment/Plan Assessment:: This is a 60 year old male presenting after a fall at home. he has had progressively worsening lower extremity weakness and numbness and fell last night because his right leg was so weak it just gave out on him. He had to drag himself around the house because he can't really use his right leg. On exam he does have weakness and diminished sensation in bilateral lower extremities, R>L, in addition to some spastic movements. He did injury his right leg when he fell. X-rays of the right hip and knee are negative, but right ankle XR shows a distal fibula fracture with some disruption of the ankle mortise. He was placed in a short leg orthoglass splint. He did have a CT scan from 10/27 of the abd/pelvis showed low attenuation focus in the L2 vertebral body that likely represents a small hemangioma. It is not clear if this is what he was referencing when he mentioned a benign tumor in his spine. My concern today is for cauda equina given his lower extremity symptoms and urinary retention. His labs today are unrevealing aside from mild elevation of ESR and CRP. MRI of the lumbar spine was obtained with and without contrast - this showed some degenerative changes at L4/5 with some encroachment on the neural foramina bilaterally R>L and mild neural foraminal encroachment at L5/S1 on the left. No evidence of cauda equina. These MRI findings do not explain his physical exam findings at this time. I also considered transverse myelitis and the patient may benefit from MRI of the remainder of the spine. The cause of his symptoms is not clear at this time. I discussed the patient with Dr. Juárez at , who accepted the patient in transfer for additional evaluation and management. The patient was transferred via ambulance in stable condition.
[2020-11-06] MEDS ORDERED: Gadoteridol 279.3 MG/ML 15 ML SDV IV SCH (14:00)
--- NOTE | 2020-11-06 14:02 | CR ---
Knee 3V Rt, CLINICAL HISTORY: Pain after fall FINDINGS: No acute fracture or dislocation is noted. There are no osseous lesions. There is mild joint space narrowing. Impression: No fracture Ankle Min 3V Rt, Hip Min 2V or 3V w Pelvis Rt CLINICAL HISTORY: Fall FINDINGS: The soft tissues are swollen. There is a slightly displaced fracture of the distal fibula. Some mild widening of the ankle mortise. Impression: Slightly displaced fracture of the distal fibula Mild widening of the ankle mortise Rt, Hip Min 2V or 3V w Pelvis Rt CLINICAL HISTORY: Fall FINDINGS: No fracture or dislocation is identified. IMPRESSION: Negative
--- NOTE | 2020-11-06 15:35 | MR ---
Lumbar Spine Comp w wo Cont CLINICAL HISTORY: Leg weakness and numbness, urinary retention COMPARISON: None TECHNIQUE: Multiple pulse sequences were obtained in the sagittal and axial planes both without and with the IV infusion of MultiHance. All images were obtained on a 1.5 Alexus unit. FINDINGS: Sagittal images show the lumbar vertebral configuration and signal of the normal throughout. There is a vertebral hemangioma at L2 The conus medullaris and lumbar nerve roots have a normal signal and configuration . Axial images show normal disc contour at L1 to and L2-3. L3-4 disc has a normal contour. There is concentric disc bulging and disc space narrowing at L4-5. This encroaches on the right lateral recess and both neural foramina right greater than left. There is mild central disc protrusion at L5-S1. There is some left neural foraminal Postcontrast images show no enhancing lesions. IMPRESSION: Degenerative disc changes at L4-5 with some encroachment on the neural foramina bilaterally greater on the right Mild neural foraminal encroachment on the left at L5-S1 No mass or enhancing lesions
[2020-11-06 16:31] VITALS: BP 119/89; PULSE 97
== END 2020-11-06 17:08 ==
LOC: JP.ED 12:58
DX: S82.831A Other fracture of upper and lower end of right fibula, initial encounter for closed fracture (principal); T83.091A Other mechanical complication of indwelling urethral catheter, initial encounter; I10 Essential (primary) hypertension; I25.10 Atherosclerotic heart disease of native coronary artery without angina pectoris; I25.2 Old myocardial infarction; E03.9 Hypothyroidism, unspecified; Z95.1 Presence of aortocoronary bypass graft; Z79.82 Long term (current) use of aspirin; Z79.02 Long term (current) use of antithrombotics/antiplatelets; Z79.899 Other long term (current) drug therapy; Z91.09 Other allergy status, other than to drugs and biological substances; Z88.8 Allergy status to other drugs, medicaments and biological substances; W18.39XA Other fall on same level, initial encounter
CPT/HCPCS: 29515; 36415; 72158; 73502; 73562; 73610; 80048; 81001; 82550; 85025; 85651; 86140; 99285; A9579